=== PATIENT | male | born 1965 | race Two or more races ===

== ENCOUNTER 2016-05-04 11:15 | Inpatient (IN) | payer OTHER ==
[2016-05-04 11:24] VITALS: BMI 30.8
--- NOTE | 2016-05-04 13:27 | HP ---
COWS - Scale Resting Pulse: 1= [place] 81-100 Sweatin= Chills/Flushing Restless Observation: 3= Extraneous Movement Pupil Size: 2= Moderately Dilated Bone or Joint Aches: 4=Acute Joint/Muscle Pain Runny Nose/ Eye Tearin= Nasal Congestion GI Upset > 30mins: 3= Vomiting/Diarrhea (N/V) Tremor Observation: 2= Slight Tremor Visible Yawning Observation: 2= >3x During Session Anxiety or Irritability: 1=Feels Anxious/Irritable Goose Flesh Skin: 0=Smooth Skin COWS Score: 20 CIWA Score - CIWA Score Nausea/Vomitin (N/V) Muscle Tremors: 4-Moderate,w/Arms Extend Anxiety: 4-Mod. Anxious/Guarded Agitation: 4-Moderately Restless Paroxysmal Sweats: 1-Minimal Palms Moist Orientation: 0-Oriented Tacttile Disturbances: 3-Moderate Itch/Numb/Burn Auditory Disturbances: 3-Moderate Harsh/Frighten Visual Disturbances: 0-None Headache: 0-None Present CIWA-Ar Total Score: 24 Admission [facility] Chief Complaint: DETOX TX FOR HEROIN AND ALCOHOL DEPENDENCE Allergies/Adverse Reactions: Allergies Allergy/AdvReac Type Severity Reaction Status Date / Time No Known Allergies Allergy Verified 03/26/13 20:02 History of Present Illness: 51 Y/O H/M WITH A HX OF HEROIN AND ALCOHOL DEPENDENCE SEEKING DETOX [place] Exam Limitations: No Limitations - Ebola screening Have you traveled outside of the country in the last 21 days: No Have you had contact with anyone from an Ebola affected area: No Have you been sick,other than usual withdrawal symptoms: No Do you have a fever: No - Review of Systems Constitutional: Chills, Loss of Appetite, Night Sweats, Changes in sleep ( AMBIEN FOR SLEEP) EENT: reports: Dental Problems (DENTURES-UPPER/LOWER) Respiratory: reports: No Symptoms reported Cardiac: reports: Lightheadedness GI: reports: Constipated, Diarrhea, Nausea, Vomiting : reports: Frequency Musculoskeletal: reports: Back Pain, Joint Pain, Muscle Pain Integumentary: reports: No Symptoms Reported Neuro: reports: Headache, Tremors, Unsteady Gait, Dizziness Endocrine: reports: No Symptoms Reported Hematology: reports: No Symptoms Reported Psychiatric: reports: Orientated x3, Anxious Other Systems: Reviewed and Negative Patient History - Patient Medical History Hx Anemia: No Hx Asthma: No Hx Chronic Obstructive Pulmonary Disease (COPD): No Hx Cancer: No Hx Cardiac Disorders: Yes (ANGIOPLASTY WITH STENT) Hx Congestive Heart Failure: No Hx Hypertension: Yes (ON MED) Hx Hypercholesterolemia: Yes Hx Pacemaker: No HX Cerebrovascular Accident: Yes (HX RIGHT HEMIPLEGIA--NO RESIDUAL EFFECTS TODAY.) Hx Seizures: No Hx Dementia: No Hx Diabetes: Yes (ON MED) Hx Gastrointestinal Disorders: No Hx Liver Disease: No Hx Genitourinary Disorders: No Hx Sexually Transmitted Disorders: No Hx Renal Disease (ESRD): Yes (HX RENAL INSUFFICIENCY) Hx Thyroid Disease: No Hx Human Immunodeficiency Virus (HIV): No (08/2011-negative) Hx Hepatitis C: No Hx Depression: No Hx Suicide Attempt: No (DENIES) Hx Bipolar Disorder: No Hx Schizophrenia: No - Patient Surgical History Past Surgical History: No Hx Neurologic Surgery: No Hx Cataract Extraction: No Hx Cardiac Surgery: Yes (s/p angioplasty with stent) Hx Lung Surgery: No Hx Breast Surgery: No Hx Breast Biopsy: No Hx Abdominal Surgery: No Hx Appendectomy: No Hx Cholecystectomy: No Hx Genitourinary Surgery: No Hx Section: No Hx Orthopedic Surgery: No Hx Hysterectomy: No Other Surgical History: 2009-cardiac cath with stent at [facility] after routine p.exam Anesthesia Reaction: No - PPD History Previous Implant?: No Documented Results: Positive w/o proof Implanted On Prior [facility] Admission?: No Results: CXR TBD PPD to be Administered?: No - Reproductive History Patient is a Female of Child Bearing Age (11 -55 yrs old): No (MALE) - Smoking Cessation Smoking history: Current every day smoker Have you smoked in the past 12 months: Yes Aproximately how many cigarettes per day: 20 Cigars Per Day: 0 Hx Chewing Tobacco Use: No Initiated information on smoking cessation: Yes 'Breaking Loose' booklet given: 05/04/16 - Substance & Tx. History Hx Alcohol Use: Yes (LIQUOR/BEER) Hx Substance Use: Yes (HEROIN) Substance Use Type: Alcohol, Heroin Hx Substance Use Treatment: Yes ([facility]) - Substances Abused Alcohol Route: Oral Frequency: Daily Amount used: 1 pint liquor Age of first use: 16 Date of Last Use: 05/03/16 Herione Route: Inhalation Frequency: Daily Amount used: 15 bags Age of first use: 16 Date of Last Use: 05/03/16 Family Disease History - Family Disease History Family History: Denies Admission Physical Exam [facility] - Vital Signs Vital Signs: Vital Signs - 24 hr 05/04/16 11:17 Temperature 98.0 F Pulse Rate 99 H Respiratory 20 Rate Blood Pressure 150/90 - Physical General Appearance: Yes: Moderate Distress, Irritable, Anxious HEENTM: Yes: EOMI, Normocephalic, YASMEEN, Pharynx Normal Respiratory: Yes: Chest Non-Tender, Lungs Clear, Normal Breath Sounds, No Respiratory Distress Neck: Yes: Supple, Trachea in good position Breast: Yes: Breast Exam Deferred Cardiology: Yes: Regular Rhythm, Regular Rate, S1, S2 Abdominal: Yes: Normal Bowel Sounds, Non Tender, Soft, Protuberent Genitourinary: Yes: Other (N/C) Back: Yes: Within Normal Limits Musculoskeletal: Yes: full range of Motion, Gait Steady Extremities: Yes: Normal Range of Motion, Non-Tender Neurological: Yes: research lab assistant II-XII NML intact, Fully Oriented, Alert, Motor Strength 5/5 Integumentary: Yes: Dry, Warm Lymphatic: Yes: Within Normal Limits - Diagnostic (1) DM Diabetes mellitus type 2 Current Visit: Yes Status: Chronic (2) Essential hypertension Current Visit: Yes Status: Chronic (3) Hypercholesterolemia Current Visit: Yes Status: Chronic (4) Nicotine dependence Current Visit: Yes Status: Chronic (5) coronary artery disease with stent Current Visit: Yes Status: Chronic (6) mmtp Current Visit: No Status: Inactive (7) 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
[2016-05-04] MEDS ORDERED: MENTHOL/PHENOL 1 EACH UD MM PRN (13:36)
[2016-05-04] MEDS ORDERED: IBUPROFEN 400 MG TABLET (FP) PO PRN (13:36)
[2016-05-04] MEDS ORDERED: LOPERAMIDE HCL 2 MG CAPSULE PO PRN (13:36)
[2016-05-04] MEDS ORDERED: P-EPHED 60MG/TRIPROLIDI 2.5MG TABLET PO PRN (13:36)
[2016-05-04] MEDS ORDERED: NICOTINE POLACRILEX 2 MG GUM BUC PRN (13:36)
[2016-05-04] MEDS ORDERED: chlordiazePOXIDE HCL 25 MG CAPSULE PO PRN (13:36)
[2016-05-04] MEDS ORDERED: guaiFENesin/D-METHORPHAN HB 10 ML UNIT-DOSE CUPS PO PRN (13:36)
[2016-05-04] MEDS ORDERED: hydrOXYzine PAMOATE 25 MG CAPSULE (FP) PO PRN (13:36)
[2016-05-04] MEDS ORDERED: MAGNESIUM CITRATE 300 ML BOTTLE PO PRN (13:36)
[2016-05-04] MEDS ORDERED: MAGNESIUM HYDROX 2400MG/30ML ORAL SUSPENSION 30 ML CUP PO PRN (13:36)
[2016-05-04] MEDS ORDERED: MAG HYDROX/AL HYDROX/SIMETH 30 ML UNIT-DOSE CUP PO PRN (13:36)
[2016-05-04] MEDS ORDERED: chlordiazePOXIDE HCL 25 MG CAPSULE PO ONE (13:54)
[2016-05-04] MEDS ORDERED: METHADONE HCL 10 MG TABLET (FOR DETOX USE ONLY) PO ONE ×2 (13:55→23:00)
[2016-05-04] MEDS: chlordiazePOXIDE HCL 25 MG CAPSULE PO SCH ×2 (17:22→22:08)
[2016-05-04] MEDS: metFORMIN HCL 500 MG TABLET (FP) PO SCH (17:23)
[2016-05-04 18:59] LABS: URINE APPEARANCE CLEAR; URINE BILIRUBIN NEGATIVE (NEGATIVE); URINE BLOOD NEGATIVE (NEGATIVE); URINE COLOR STRAW; URINE GLUCOSE (UA) 3+ (NEGATIVE); URINE KETONE NEGATIVE (NEGATIVE); URINE LEUK ESTERASE NEGATIVE (NEGATIVE); URINE NITRITE NEGATIVE (NEGATIVE); URINE PROTEIN NEGATIVE (NEGATIVE); URINE UROBILINOGEN NEGATIVE E.U./dl (0.2-1.0)
[2016-05-04] MEDS: THIAMINE HCL 100 MG TABLET (FP) PO SCH (22:08)
[2016-05-04] MEDS: diphenhydrAMINE HCL 50 MG CAPSULE PO PRN (22:10)
[2016-05-05] MEDS: chlordiazePOXIDE HCL 25 MG CAPSULE PO SCH ×4 (05:42→22:22)
[2016-05-05] MEDS: metFORMIN HCL 500 MG TABLET (FP) PO SCH ×2 (07:37→16:53)
[2016-05-05] MEDS ORDERED: INSULIN (NOVOLOG) ASPART 100 UNITS/ML 10ML VIAL ONE ×3 (07:37→16:43)
[2016-05-05] MEDS: INSULIN SLIDING SCALE (NOVOLOG) 1 VIAL SQ SCH ×3 (07:41→16:53)
[2016-05-05] MEDS ORDERED: METHADONE HCL 10 MG TABLET (FOR DETOX USE ONLY) PO SCH (10:00)
--- NOTE | 2016-05-05 10:31 | CONSULT ---
[facility] Psychiatric Consult - Data Date of interview: 05/05/16 Admission source: [employer] Identifying data: Mr Hoyt is a 51 years old single male, father of a 17 years old son, unemployed on food stamp, living with family Substance Abuse History: - Smoking Cessation. Smoking history: Current every day smoker. Have you smoked in the past 12 months: Yes. Aproximately how many cigarettes per day: 20. Cigars Per Day: 0. Hx Chewing Tobacco Use: No. Initiated information on smoking cessation: Yes. 'Breaking Loose' booklet given : 05/04/16. - Substance & Tx. History. Hx Alcohol Use: Yes (LIQUOR/BEER). Hx Substance Use: Yes (HEROIN). Substance Use Type: Alcohol, Heroin. Hx Substance Use Treatment: Yes ([facility] - Substances Abused. Alcohol. Route : Oral. Frequency: Daily. Amount used: 1 pint liquor. Age of first use: 16. Date of Last Use: 05/03/16. Herione. Route: Inhalation. Frequency: Daily. Amount used: 15 bags. Age of first use: 16. Date of Last Use: 05/03/16 Medical History: Significant for history of HTN, Hyperlipidemia, DM, CAD with s/ p stent, S/P CVA with right hemiplegia( no residual at present), renal insufficiency, PPD+. Smokes cigarettes 1ppd Psychiatric History: Denies history of previous psychiatric treatment. However, reports being prescribed Ambien 10 mg po HS for insomnia. At present, patient is irritable, uncooperative and somewhat hostile Physical/Sexual Abuse/Trauma History: Denies history of physical, sexual abuse Additional Comment: Reports 3 previous felony convictions and he is on parole till 2019 Mental Status Exam - Mental Status Exam Alert and Oriented to: Time, Place, Person Cognitive Function: Fair Patient Appearance: Disheveled Mood: Angry, Hostile, Irritable Affect: Appropriate Patient Behavior: Uncooperative Speech Pattern: Clear Voice Loudness: Normal Thought Process: Intact Hallucinations: Denies Suicidal Ideation: Denies Homicidal Ideation: Denies Insight/Judgement: Poor Sleep: Poorly Appetite: Poor Muscle strength/Tone: Normal Gait/Station: Normal
[2016-05-05 10:43] LABS: MCH 27.7 pg (25.7-33.7); MCHC 32.7 g/dl (32.0-35.9); MEAN CELL VOLUME 84.8 fl (80-96); PLATELET COUNT 362 K/MM3 (134-434); RDW 14.6 % (11.9-15.9)
[2016-05-05] MEDS: METOPROLOL TARTRATE 25 MG TABLET (FP) PO SCH (10:49)
[2016-05-05] MEDS: HYDROCHLOROTHIAZIDE 25 MG TABLET (FP) PO SCH (10:49)
[2016-05-05] MEDS: LISINOPRIL 20 MG TABLET (FP) PO SCH (10:49)
[2016-05-05] MEDS: PRENATAL VITAMINS W/ FOLIC ACID TABLET (FP) PO SCH (10:49)
[2016-05-05 10:55] LABS: BILIRUBIN,TOTAL 0.4 mg/dL (0.2-1.0); CALCIUM 8.3 mg/dL (8.5-10.1); CREATININE 1.5 mg/dL (0.7-1.3)
[2016-05-05 11:00] LABS: TOT PROT 6.7 g/dl (6.4-8.2)
--- NOTE | 2016-05-05 15:35 | EKG ---
Test Reason : Blood Pressure : / mmHG Vent. Rate : 085 BPM Atrial Rate : 085 BPM P-R Int : 216 ms QRS Dur : 092 ms QT Int : 386 ms P-R-T Axes : 034 -40 089 degrees QTc Int : 459 ms SINUS RHYTHM WITH 1ST DEGREE A-V BLOCK LEFT AXIS DEVIATION ANTEROLATERAL INFARCT , AGE UNDETERMINED ABNORMAL ECG NO PREVIOUS ECGS AVAILABLE Confirmed by GONZALEZ SANDOVAL MD ([id number]) on 05/05/2016 3:34:58 PM Referred By: Confirmed By:GONZALEZ SANDOVAL MD
--- NOTE | 2016-05-05 16:16 | PN ---
S CIWA - CIWA Score Nausea/Vomitin Muscle Tremors: 3 Anxiety: 4-Mod. Anxious/Guarded Agitation: 4-Moderately Restless Paroxysmal Sweats: 3 Orientation: 0-Oriented Tacttile Disturbances: 1-Very Mild Itch/Numbness Auditory Disturbances: 0-None Visual Disturbances: 0-None Headache: 1-Very Mild CIWA-Ar Total Score: 19 BHS COWS - Scale Resting Pulse: 1= [place] 81-100 Sweatin= Chills/Flushing Restless Observation: 1= Difficult to Sit Still Pupil Size: 1= Pupils >than Normal Bone or Joint Aches: 1= Mild Discomfort Runny Nose/ Eye Tearin= Nasal Congestion GI Upset > 30mins: 2= Nausea/Diarrhea Tremor Observation of Outstretched Hands: 1= Tremor [place], Not Seen Yawning Observation: 1= 1-2x During Session Anxiety or Irritability: 2=Irritable/Anxious Goose Flesh Skin: 0=Smooth Skin COWS Score: 12 S Progress Note (SOAP) Subjective: nausea, sweats, interrupted sleep, anxiety, tremor Objective: 05/05/16 16:14 Vital Signs - 24 hr 05/04/16 05/04/16 05/05/16 18:03 21:55 00:31 Temperature 96.7 F L 98.3 F Pulse Rate 96 H 93 H Respiratory 18 18 18 Rate Blood Pressure 146/89 139/99 05/05/16 05/05/16 05/05/16 03:29 06:07 09:40 Temperature 98.0 F 98.8 F Pulse Rate 86 102 H Respiratory 18 18 20 Rate Blood Pressure 142/95 140/91 05/05/16 13:38 Temperature 97.2 F L Pulse Rate 93 H Respiratory 20 Rate Blood Pressure 134/93 Laboratory Tests 05/04/16 05/04/16 05/04/16 12:31 15:00 16:34 WBC RBC Hgb Hct MCV MCHC RDW Plt Count MPV Sodium Potassium Chloride Carbon Dioxide Anion Gap BUN Creatinine Creat Clearance w eGFR POC Glucometer 472 422 Random Glucose Calcium Total Bilirubin AST ALT Alkaline Phosphatase Total Protein Albumin Urine Color Straw Urine Appearance Clear Urine pH 8.0 D Ur Specific [place] 1.025 Urine Protein Negative Urine Glucose (UA) 3+ H Urine Ketones Negative Urine Blood Negative Urine Nitrite Negative Urine Bilirubin Negative Urine Urobilinogen Negative Ur Leukocyte Esterase Negative RPR Titer 01/20/17 01/20/17 01/20/17 05:42 06:15 06:15 WBC 13.0 H D RBC 4.55 Hgb 12.6 Hct 38.5 MCV 84.8 MCHC 32.7 RDW 14.6 Plt Count 362 D MPV 8.0 Sodium 130 L Potassium 5.2 H D Chloride 94 L Carbon Dioxide 26 Anion Gap 10 BUN 23 H Creatinine 1.5 H D Creat Clearance w eGFR 49.54 POC Glucometer 305 Random Glucose 571 H* D Calcium 8.3 L Total Bilirubin 0.4 D AST 10 L ALT 21 Alkaline Phosphatase 125 H D Total Protein 6.7 Albumin 3.0 L Urine Color Urine Appearance Urine pH Ur Specific [place] Urine Protein Urine Glucose (UA) Urine Ketones Urine Blood Urine Nitrite Urine Bilirubin Urine Urobilinogen Ur Leukocyte Esterase RPR Titer 05/05/16 05/05/16 06:15 11:09 WBC RBC Hgb Hct MCV MCHC RDW Plt Count MPV Sodium Potassium Chloride Carbon Dioxide Anion Gap BUN Creatinine Creat Clearance w eGFR POC Glucometer 468 Random Glucose Calcium Total Bilirubin AST ALT Alkaline Phosphatase Total Protein Albumin Urine Color Urine Appearance Urine pH Ur Specific [place] Urine Protein Urine Glucose (UA) Urine Ketones Urine Blood Urine Nitrite Urine Bilirubin Urine Urobilinogen Ur Leukocyte Esterase RPR Titer Nonreactive elevated K Assessment: 05/05/16 16:15 withdrawal sx, hyperkalemia, dehydration Plan: cont detox, encoruage fluids, repeat K
[2016-05-05] MEDS: THIAMINE HCL 100 MG TABLET (FP) PO SCH (22:22)
[2016-05-05] MEDS: ACETAMINOPHEN 325 MG TABLET (FP) PO PRN (22:22)
[2016-05-05] MEDS: diphenhydrAMINE HCL 50 MG CAPSULE PO PRN (22:23)
[2016-05-06] MEDS: chlordiazePOXIDE HCL 25 MG CAPSULE PO SCH ×2 (05:37→10:32)
[2016-05-06] MEDS ORDERED: INSULIN (NOVOLOG) ASPART 100 UNITS/ML 10ML VIAL ONE ×4 (07:38→22:54)
[2016-05-06] MEDS: metFORMIN HCL 500 MG TABLET (FP) PO SCH ×2 (07:41→17:28)
[2016-05-06] MEDS: INSULIN SLIDING SCALE (NOVOLOG) 1 VIAL SQ SCH ×4 (07:42→22:58)
--- NOTE | 2016-05-06 10:26 | PN ---
S CIWA - CIWA Score Nausea/Vomitin Muscle Tremors: 3 Anxiety: 2 Agitation: 3 Paroxysmal Sweats: 3 Orientation: 0-Oriented Tacttile Disturbances: 1-Very Mild Itch/Numbness Auditory Disturbances: 0-None Visual Disturbances: 0-None Headache: 2-Mild CIWA-Ar Total Score: 16 BHS COWS - Scale Resting Pulse: 1= [place] 81-100 Sweatin=Flushed/Facial Moisture Restless Observation: 3= Extraneous Movement Pupil Size: 1= Pupils >than Normal Bone or Joint Aches: 2= Severe Diffuse Aches Runny Nose/ Eye Tearin= Nasal Congestion GI Upset > 30mins: 2= Nausea/Diarrhea Tremor Observation of Outstretched Hands: 2= Slight Tremor Visible Yawning Observation: 0= None Anxiety or Irritability: 2=Irritable/Anxious Goose Flesh Skin: 3=Piloe[place] COWS Score: 19 S Progress Note (SOAP) Subjective: sleeplessness, chills, back pain, shakes and sweats Objective: 05/06/16 10:24 Vital Signs 05/06/16 05/06/16 03:30 06:24 Temperature 99 F Pulse Rate 81 Respiratory 16 18 Rate Blood Pressure 122/80 Laboratory Last Values WBC 13.0 K/mm3 (4.0-10.0) H D 05/05/16 06:15 RBC 4.55 M/mm3 (4.00-5.60) 05/05/16 06:15 Hgb 12.6 GM/dL (11.7-16.9) 05/05/16 06:15 Hct 38.5 % (35.4-49) 05/05/16 06:15 MCV 84.8 fl (80-96) 05/05/16 06:15 MCHC 32.7 g/dl (32.0-35.9) 05/05/16 06:15 RDW 14.6 % (11.9-15.9) 05/05/16 06:15 Plt Count 362 K/MM3 (134-434) D 05/05/16 06:15 MPV 8.0 fl (7.5-11.1) 05/05/16 06:15 Sodium 130 mmol/L (136-145) L 05/05/16 06:15 Potassium 5.2 mmol/L (3.5-5.1) H D 05/05/16 06:15 Chloride 94 mmol/L (98-107) L 05/05/16 06:15 Carbon Dioxide 26 mmol/L (21-32) 05/05/16 06:15 Anion Gap 10 (8-16) 05/05/16 06:15 BUN 23 mg/dL (7-18) H 05/05/16 06:15 Creatinine 1.5 mg/dL (0.7-1.3) H D 05/05/16 06:15 Creat Clearance w eGFR 49.54 (>60) 05/05/16 06:15 POC Glucometer 261 UNITS (()) 05/06/16 05:39 Random Glucose 571 mg/dL (74-106) H* D 05/05/16 06:15 Calcium 8.3 mg/dL (8.5-10.1) L 05/05/16 06:15 Total Bilirubin 0.4 mg/dL (0.2-1.0) D 05/05/16 06:15 AST 10 U/L (15-37) L 05/05/16 06:15 ALT 21 U/L (12-78) 05/05/16 06:15 Alkaline Phosphatase 125 U/L (45-117) H D 05/05/16 06:15 Total Protein 6.7 g/dl (6.4-8.2) 05/05/16 06:15 Albumin 3.0 g/dl (3.4-5.0) L 05/05/16 06:15 Urine Color Straw 05/04/16 15:00 Urine Appearance Clear 05/04/16 15:00 Urine pH 8.0 (5.0-8.0) D 05/04/16 15:00 Ur Specific [place] 1.025 (1.001-1.035) 05/04/16 15:00 Urine Protein Negative (NEGATIVE) 05/04/16 15:00 Urine Glucose (UA) 3+ (NEGATIVE) H 05/04/16 15:00 Urine Ketones Negative (NEGATIVE) 05/04/16 15:00 Urine Blood Negative (NEGATIVE) 05/04/16 15:00 Urine Nitrite Negative (NEGATIVE) 05/04/16 15:00 Urine Bilirubin Negative (NEGATIVE) 05/04/16 15:00 Urine Urobilinogen Negative E.U./dl (0.2-1.0) 05/04/16 15:00 Ur Leukocyte Esterase Negative (NEGATIVE) 05/04/16 15:00 RPR Titer Nonreactive (NONREACTIVE) 05/05/16 06:15 Labs noted, repeat labs pending Assessment: 05/06/16 10:25 withdrawal sx, electrolyte abnormalities Plan: continue detox, address repeat labs as indicated once resulted
[2016-05-06] MEDS: PRENATAL VITAMINS W/ FOLIC ACID TABLET (FP) PO SCH (10:32)
[2016-05-06] MEDS: LISINOPRIL 20 MG TABLET (FP) PO SCH (10:32)
[2016-05-06] MEDS: METHADONE HCL 5 MG TABLET (FOR DETOX USE ONLY) PO SCH (10:32)
[2016-05-06] MEDS: METOPROLOL TARTRATE 25 MG TABLET (FP) PO SCH (10:32)
[2016-05-06] MEDS: HYDROCHLOROTHIAZIDE 25 MG TABLET (FP) PO SCH (10:32)
[2016-05-06 11:08] LABS: BASOPHIL 0.7 % (0-2.0); EOSINOPHIL 3.7 % (0-4.5); MCHC 32.3 g/dl (32.0-35.9); MEAN CELL VOLUME 83.4 fl (80-96); MEAN PLT VOLUME 7.6 fl (7.5-11.1); NEUTROPHILS 63.3 % (42.8-82.8); PLATELET COUNT 368 K/MM3 (134-434); RDW 14.7 % (11.9-15.9)
[2016-05-06 11:47] LABS: CALCIUM 8.4 mg/dL (8.5-10.1); CREATININE 1.3 mg/dL (0.7-1.3)
[2016-05-06] MEDS: chlordiazePOXIDE 5 MG CAPSULE PO SCH ×2 (17:31→22:59)
--- NOTE | 2016-05-06 20:56 | PN ---
[facility] Progress Note Note: MD'S NOTE: CALLED TO SEE THE PT. AT 8:00PM WHO FELL ON THE FLOOR AND HIT ON LEFT SIDE OF THE NECK DENIES: HITTING THE HEAD SUB: DIZZINESS AND WEAKNESS+ ONGOING BLURRED VISION++ NOT TAKING CARE OF HIS DIABETES OBJ: THE PT. IS STEEN X 3, NOT IN DISTRESS AND HE IS AMBULATORY WITH AN UNSTEADY GAIT V/S: 98.1T-89-16-125/81 S/E: HEAD AND NECK: NL MOVEMENTS NO VISIBLE INJURIES NOTED CVS: -JVD, NL HEART SOUNDS, NO MURMURS LUNGS: VESICULAR BREATH SOUNDS, NO RALES OR RHONCHI ABD: SOFT, NT, B.S.+ IMPRESSION: SOFT TISSUE INJURY NECK - APPARENTLY WITHOUT ANY VISIBLE INJURIES UNCONTROLLED DM PLANS: -PROTOCOL #2 -OBSERVATION -INSULIN SLIDING SCALE AND COVERAGE HAS BEEN CHANGED TO ACHS -TO KEEP THE PT. CLOSE TO THE NURSING STATION -HE CAN USE A CANE NEEDED -WILL F/U NEEDED PROVIDER: JULIAN DELUCA MD
[2016-05-06] MEDS: THIAMINE HCL 100 MG TABLET (FP) PO SCH (22:55)
[2016-05-07] MEDS: chlordiazePOXIDE 5 MG CAPSULE PO SCH ×2 (06:05→10:24)
[2016-05-07] MEDS ORDERED: INSULIN (NOVOLOG) ASPART 100 UNITS/ML 10ML VIAL ONE ×3 (08:00→21:04)
[2016-05-07] MEDS: INSULIN SLIDING SCALE (NOVOLOG) 1 VIAL SQ SCH ×4 (08:01→21:07)
[2016-05-07] MEDS: metFORMIN HCL 500 MG TABLET (FP) PO SCH ×2 (08:03→16:50)
[2016-05-07] MEDS: METHADONE HCL 5 MG TABLET (FOR DETOX USE ONLY) PO SCH (10:24)
[2016-05-07] MEDS: HYDROCHLOROTHIAZIDE 25 MG TABLET (FP) PO SCH (10:24)
[2016-05-07] MEDS: PRENATAL VITAMINS W/ FOLIC ACID TABLET (FP) PO SCH (10:24)
[2016-05-07] MEDS: LISINOPRIL 20 MG TABLET (FP) PO SCH (10:24)
[2016-05-07] MEDS: METOPROLOL TARTRATE 25 MG TABLET (FP) PO SCH (10:24)
--- NOTE | 2016-05-07 10:58 | PN ---
S Progress Note (SOAP) Subjective: Anxiety, restless, dizziness, lightheadedness, persistent headache presently pain scale 4/10, unsteady gait, diarrhea, upset stomach, numbness in legs; patient stated he fell last night on the floor and hit the back of his head on his roommate's bed and his roommate assisted him off the floor. Roommate stated that patient did fall and that he assisted him off the floor. Patient reports history of DMT2 and CVA x 2 in 2011 with mild residual weakness in his arms and legs. As per patient, he didn't eat breakfast and has not been drinking fluids. Crisis Worker encouraged patient to eat meals and drink lots of water. He agrees to drink glucerna TID.Patient agreed to use cane when available. Objective: 05/07/16 10:58 Last Vital Signs Temp Pulse Resp BP Pulse Ox 97.1 F L 90 16 114/80 05/07/16 07:58 05/07/16 07:58 05/07/16 07:58 05/07/16 07:58 PE: Head: AT/NC, mild tenderness to palpation at left cerebellum/posterior of head Resp: lungs ctab/l, no adventitious breath sounds CV: rrr, s1s2+, apical rate 92 bpm, no m/g/r Skin: warm to touch, turgor good Gait: a little unsteady when he gets up but ambulatory Laboratory Tests 05/04/16 05/04/16 05/04/16 12:31 15:00 16:34 WBC RBC Hgb Hct MCV MCHC RDW Plt Count MPV Neutrophils % Lymphocytes % Monocytes % Eosinophils % Basophils % Sodium Potassium Chloride Carbon Dioxide Anion Gap BUN Creatinine Creat Clearance w eGFR POC Glucometer 472 422 Random Glucose Calcium Total Bilirubin AST ALT Alkaline Phosphatase Total Protein Albumin Urine Color Straw Urine Appearance Clear Urine pH 8.0 D Ur Specific [place] 1.025 Urine Protein Negative Urine Glucose (UA) 3+ H Urine Ketones Negative Urine Blood Negative Urine Nitrite Negative Urine Bilirubin Negative Urine Urobilinogen Negative Ur Leukocyte Esterase Negative RPR Titer 05/05/16 05/05/16 05/05/16 05:42 06:15 06:15 WBC 13.0 H D RBC 4.55 Hgb 12.6 Hct 38.5 MCV 84.8 MCHC 32.7 RDW 14.6 Plt Count 362 D MPV 8.0 Neutrophils % Lymphocytes % Monocytes % Eosinophils % Basophils % Sodium 130 L Potassium 5.2 H D Chloride 94 L Carbon Dioxide 26 Anion Gap 10 BUN 23 H Creatinine 1.5 H D Creat Clearance w eGFR 49.54 POC Glucometer 305 Random Glucose 571 H* D Calcium 8.3 L Total Bilirubin 0.4 D AST 10 L ALT 21 Alkaline Phosphatase 125 H D Total Protein 6.7 Albumin 3.0 L Urine Color Urine Appearance Urine pH Ur Specific [place] Urine Protein Urine Glucose (UA) Urine Ketones Urine Blood Urine Nitrite Urine Bilirubin Urine Urobilinogen Ur Leukocyte Esterase RPR Titer 05/05/16 05/05/16 05/05/16 06:15 11:09 16:30 WBC RBC Hgb Hct MCV MCHC RDW Plt Count MPV Neutrophils % Lymphocytes % Monocytes % Eosinophils % Basophils % Sodium Potassium Chloride Carbon Dioxide Anion Gap BUN Creatinine Creat Clearance w eGFR POC Glucometer 468 335 Random Glucose Calcium Total Bilirubin AST ALT Alkaline Phosphatase Total Protein Albumin Urine Color Urine Appearance Urine pH Ur Specific [place] Urine Protein Urine Glucose (UA) Urine Ketones Urine Blood Urine Nitrite Urine Bilirubin Urine Urobilinogen Ur Leukocyte Esterase RPR Titer Nonreactive 05/06/16 05/06/16 05/06/16 05:39 08:00 08:00 WBC 13.0 H RBC 4.87 Hgb 13.1 Hct 40.6 MCV 83.4 MCHC 32.3 RDW 14.7 Plt Count 368 MPV 7.6 Neutrophils % 63.3 Lymphocytes % 19.1 Monocytes % 13.2 H Eosinophils % 3.7 Basophils % 0.7 Sodium 134 L Potassium 5.1 Chloride 99 Carbon Dioxide 26 Anion Gap 9 BUN 25 H Creatinine 1.3 Creat Clearance w eGFR POC Glucometer 261 Random Glucose 277 H D Calcium 8.4 L Total Bilirubin AST ALT Alkaline Phosphatase Total Protein Albumin Urine Color Urine Appearance Urine pH Ur Specific [place] Urine Protein Urine Glucose (UA) Urine Ketones Urine Blood Urine Nitrite Urine Bilirubin Urine Urobilinogen Ur Leukocyte Esterase RPR Titer 05/06/16 05/06/16 05/07/16 11:28 21:24 07:57 WBC RBC Hgb Hct MCV MCHC RDW Plt Count MPV Neutrophils % Lymphocytes % Monocytes % Eosinophils % Basophils % Sodium Potassium Chloride Carbon Dioxide Anion Gap BUN Creatinine Creat Clearance w eGFR POC Glucometer 545 369 224 Random Glucose Calcium Total Bilirubin AST ALT Alkaline Phosphatase Total Protein Albumin Urine Color Urine Appearance Urine pH Ur Specific [place] Urine Protein Urine Glucose (UA) Urine Ketones Urine Blood Urine Nitrite Urine Bilirubin Urine Urobilinogen Ur Leukocyte Esterase RPR Titer Labs noted Assessment: 05/07/16 11:02 Withdrawal symptoms Headache secondary to syncope Plan: Continue detox, encouraged diet, glucerna 1 can PO TID, encouraged to drink lots of water Headache secondary to sycope: report given to Dr. Mcdonald in ER at [facility] for evaluation due to fall, CT brain without contrast, tylenol prn. Educated on importance of changing position slowly and dangling legs before getting up and getting up slowly. Ordered for cane. Continue fall precaution and monitor for safety.
[2016-05-07] MEDS: chlordiazePOXIDE HCL 10 MG CAPSULE PO SCH ×2 (16:50→22:28)
[2016-05-07] MEDS: diphenhydrAMINE HCL 50 MG CAPSULE PO PRN (21:08)
[2016-05-07] MEDS: THIAMINE HCL 100 MG TABLET (FP) PO SCH (21:09)
[2016-05-08] MEDS: ACETAMINOPHEN 325 MG TABLET (FP) PO PRN ×2 (05:49→14:01)
[2016-05-08] MEDS: chlordiazePOXIDE HCL 10 MG CAPSULE PO SCH ×2 (05:55→10:17)
[2016-05-08] MEDS ORDERED: INSULIN (NOVOLOG) ASPART 100 UNITS/ML 10ML VIAL ONE ×4 (07:37→21:39)
[2016-05-08] MEDS: metFORMIN HCL 500 MG TABLET (FP) PO SCH ×2 (07:43→17:26)
[2016-05-08] MEDS: INSULIN SLIDING SCALE (NOVOLOG) 1 VIAL SQ SCH ×4 (07:43→21:41)
[2016-05-08] MEDS ORDERED: METHADONE HCL 10 MG TABLET (FOR DETOX USE ONLY) PO SCH (10:00)
[2016-05-08] MEDS: METOPROLOL TARTRATE 25 MG TABLET (FP) PO SCH (10:16)
[2016-05-08] MEDS: LISINOPRIL 20 MG TABLET (FP) PO SCH (10:16)
[2016-05-08] MEDS: PRENATAL VITAMINS W/ FOLIC ACID TABLET (FP) PO SCH (10:16)
[2016-05-08] MEDS: HYDROCHLOROTHIAZIDE 25 MG TABLET (FP) PO SCH (10:17)
--- NOTE | 2016-05-08 10:43 | PN ---
[facility] Progress Note (SOAP) Subjective: nausea, sweats, interrupted sleep, anxiety, tremors, left sided numbness/ tingling and weakness s/p cva no pain reported. Objective: 05/08/16 10:42 Vital Signs - 8 hr 05/08/16 05/08/16 05/08/16 03:30 06:09 09:18 Temperature 97.3 F L 98.1 F Pulse Rate 94 H 74 Respiratory 18 18 16 Rate Blood Pressure 116/78 101/69 Laboratory Tests 05/04/16 05/04/16 05/04/16 12:31 15:00 16:34 WBC RBC Hgb Hct MCV MCHC RDW Plt Count MPV Neutrophils % Lymphocytes % Monocytes % Eosinophils % Basophils % Sodium Potassium Chloride Carbon Dioxide Anion Gap BUN Creatinine Creat Clearance w eGFR POC Glucometer 472 422 Random Glucose Calcium Total Bilirubin AST ALT Alkaline Phosphatase Total Protein Albumin Urine Color Straw Urine Appearance Clear Urine pH 8.0 D Ur Specific [place] 1.025 Urine Protein Negative Urine Glucose (UA) 3+ H Urine Ketones Negative Urine Blood Negative Urine Nitrite Negative Urine Bilirubin Negative Urine Urobilinogen Negative Ur Leukocyte Esterase Negative RPR Titer 05/05/16 05/05/16 05/05/16 05:42 06:15 06:15 WBC 13.0 H D RBC 4.55 Hgb 12.6 Hct 38.5 MCV 84.8 MCHC 32.7 RDW 14.6 Plt Count 362 D MPV 8.0 Neutrophils % Lymphocytes % Monocytes % Eosinophils % Basophils % Sodium 130 L Potassium 5.2 H D Chloride 94 L Carbon Dioxide 26 Anion Gap 10 BUN 23 H Creatinine 1.5 H D Creat Clearance w eGFR 49.54 POC Glucometer 305 Random Glucose 571 H* D Calcium 8.3 L Total Bilirubin 0.4 D AST 10 L ALT 21 Alkaline Phosphatase 125 H D Total Protein 6.7 Albumin 3.0 L Urine Color Urine Appearance Urine pH Ur Specific [place] Urine Protein Urine Glucose (UA) Urine Ketones Urine Blood Urine Nitrite Urine Bilirubin Urine Urobilinogen Ur Leukocyte Esterase RPR Titer 05/05/16 05/05/16 05/05/16 06:15 11:09 16:30 WBC RBC Hgb Hct MCV MCHC RDW Plt Count MPV Neutrophils % Lymphocytes % Monocytes % Eosinophils % Basophils % Sodium Potassium Chloride Carbon Dioxide Anion Gap BUN Creatinine Creat Clearance w eGFR POC Glucometer 468 335 Random Glucose Calcium Total Bilirubin AST ALT Alkaline Phosphatase Total Protein Albumin Urine Color Urine Appearance Urine pH Ur Specific [place] Urine Protein Urine Glucose (UA) Urine Ketones Urine Blood Urine Nitrite Urine Bilirubin Urine Urobilinogen Ur Leukocyte Esterase RPR Titer Nonreactive 05/06/16 05/06/16 05/06/16 05:39 08:00 08:00 WBC 13.0 H RBC 4.87 Hgb 13.1 Hct 40.6 MCV 83.4 MCHC 32.3 RDW 14.7 Plt Count 368 MPV 7.6 Neutrophils % 63.3 Lymphocytes % 19.1 Monocytes % 13.2 H Eosinophils % 3.7 Basophils % 0.7 Sodium 134 L Potassium 5.1 Chloride 99 Carbon Dioxide 26 Anion Gap 9 BUN 25 H Creatinine 1.3 Creat Clearance w eGFR POC Glucometer 261 Random Glucose 277 H D Calcium 8.4 L Total Bilirubin AST ALT Alkaline Phosphatase Total Protein Albumin Urine Color Urine Appearance Urine pH Ur Specific [place] Urine Protein Urine Glucose (UA) Urine Ketones Urine Blood Urine Nitrite Urine Bilirubin Urine Urobilinogen Ur Leukocyte Esterase RPR Titer 05/06/16 05/06/16 05/07/16 11:28 21:24 07:57 WBC RBC Hgb Hct MCV MCHC RDW Plt Count MPV Neutrophils % Lymphocytes % Monocytes % Eosinophils % Basophils % Sodium Potassium Chloride Carbon Dioxide Anion Gap BUN Creatinine Creat Clearance w eGFR POC Glucometer 545 369 224 Random Glucose Calcium Total Bilirubin AST ALT Alkaline Phosphatase Total Protein Albumin Urine Color Urine Appearance Urine pH Ur Specific [place] Urine Protein Urine Glucose (UA) Urine Ketones Urine Blood Urine Nitrite Urine Bilirubin Urine Urobilinogen Ur Leukocyte Esterase RPR Titer 05/07/16 05/07/16 05/08/16 16:41 20:28 05:51 WBC RBC Hgb Hct MCV MCHC RDW Plt Count MPV Neutrophils % Lymphocytes % Monocytes % Eosinophils % Basophils % Sodium Potassium Chloride Carbon Dioxide Anion Gap BUN Creatinine Creat Clearance w eGFR POC Glucometer 301 202 264 Random Glucose Calcium Total Bilirubin AST ALT Alkaline Phosphatase Total Protein Albumin Urine Color Urine Appearance Urine pH Ur Specific [place] Urine Protein Urine Glucose (UA) Urine Ketones Urine Blood Urine Nitrite Urine Bilirubin Urine Urobilinogen Ur Leukocyte Esterase RPR Titer Assessment: 05/08/16 10:42 withdrawal sx, hyperglycemia, dehydration, neuropathy, residual left sided weakness s/p stroke Plan: cont detox, encourage fluids, ambulation with assistance, nursing notified.
[2016-05-08] MEDS: THIAMINE HCL 100 MG TABLET (FP) PO SCH (21:41)
[2016-05-08] MEDS ORDERED: ZOLPIDEM TARTRATE 10 MG TABLET (PARK CARE ONLY) PO PRN (22:00)
[2016-05-09] MEDS: ACETAMINOPHEN 325 MG TABLET (FP) PO PRN (05:50)
[2016-05-09] MEDS ORDERED: METHADONE HCL 5 MG TABLET (FOR DETOX USE ONLY) PO SCH (06:00)
[2016-05-09] MEDS ORDERED: INSULIN (NOVOLOG) ASPART 100 UNITS/ML 10ML VIAL ONE ×2 (07:24→11:11)
[2016-05-09] MEDS: INSULIN SLIDING SCALE (NOVOLOG) 1 VIAL SQ SCH ×2 (07:27→11:14)
[2016-05-09] MEDS: metFORMIN HCL 500 MG TABLET (FP) PO SCH (07:27)
--- NOTE | 2016-05-09 09:15 | PN ---
[facility] Progress Note (SOAP) Subjective: no complaints Objective: 05/09/16 09:13 Vital Signs - 8 hr 05/09/16 05/09/16 03:40 06:32 Temperature 96.9 F L Pulse Rate 89 Respiratory 18 18 Rate Blood Pressure 113/83 Laboratory Tests 05/04/16 05/04/16 05/04/16 12:31 15:00 16:34 WBC RBC Hgb Hct MCV MCHC RDW Plt Count MPV Neutrophils % Lymphocytes % Monocytes % Eosinophils % Basophils % Sodium Potassium Chloride Carbon Dioxide Anion Gap BUN Creatinine Creat Clearance w eGFR POC Glucometer 472 422 Random Glucose Calcium Total Bilirubin AST ALT Alkaline Phosphatase Total Protein Albumin Urine Color Straw Urine Appearance Clear Urine pH 8.0 D Ur Specific [place] 1.025 Urine Protein Negative Urine Glucose (UA) 3+ H Urine Ketones Negative Urine Blood Negative Urine Nitrite Negative Urine Bilirubin Negative Urine Urobilinogen Negative Ur Leukocyte Esterase Negative RPR Titer 05/05/16 05/05/16 05/05/16 05:42 06:15 06:15 WBC 13.0 H D RBC 4.55 Hgb 12.6 Hct 38.5 MCV 84.8 MCHC 32.7 RDW 14.6 Plt Count 362 D MPV 8.0 Neutrophils % Lymphocytes % Monocytes % Eosinophils % Basophils % Sodium 130 L Potassium 5.2 H D Chloride 94 L Carbon Dioxide 26 Anion Gap 10 BUN 23 H Creatinine 1.5 H D Creat Clearance w eGFR 49.54 POC Glucometer 305 Random Glucose 571 H* D Calcium 8.3 L Total Bilirubin 0.4 D AST 10 L ALT 21 Alkaline Phosphatase 125 H D Total Protein 6.7 Albumin 3.0 L Urine Color Urine Appearance Urine pH Ur Specific [place] Urine Protein Urine Glucose (UA) Urine Ketones Urine Blood Urine Nitrite Urine Bilirubin Urine Urobilinogen Ur Leukocyte Esterase RPR Titer 05/05/16 05/05/16 05/05/16 06:15 11:09 16:30 WBC RBC Hgb Hct MCV MCHC RDW Plt Count MPV Neutrophils % Lymphocytes % Monocytes % Eosinophils % Basophils % Sodium Potassium Chloride Carbon Dioxide Anion Gap BUN Creatinine Creat Clearance w eGFR POC Glucometer 468 335 Random Glucose Calcium Total Bilirubin AST ALT Alkaline Phosphatase Total Protein Albumin Urine Color Urine Appearance Urine pH Ur Specific [place] Urine Protein Urine Glucose (UA) Urine Ketones Urine Blood Urine Nitrite Urine Bilirubin Urine Urobilinogen Ur Leukocyte Esterase RPR Titer Nonreactive 05/06/16 05/06/16 05/06/16 05:39 08:00 08:00 WBC 13.0 H RBC 4.87 Hgb 13.1 Hct 40.6 MCV 83.4 MCHC 32.3 RDW 14.7 Plt Count 368 MPV 7.6 Neutrophils % 63.3 Lymphocytes % 19.1 Monocytes % 13.2 H Eosinophils % 3.7 Basophils % 0.7 Sodium 134 L Potassium 5.1 Chloride 99 Carbon Dioxide 26 Anion Gap 9 BUN 25 H Creatinine 1.3 Creat Clearance w eGFR POC Glucometer 261 Random Glucose 277 H D Calcium 8.4 L Total Bilirubin AST ALT Alkaline Phosphatase Total Protein Albumin Urine Color Urine Appearance Urine pH Ur Specific [place] Urine Protein Urine Glucose (UA) Urine Ketones Urine Blood Urine Nitrite Urine Bilirubin Urine Urobilinogen Ur Leukocyte Esterase RPR Titer 05/06/16 05/06/16 05/06/16 11:28 16:26 21:24 WBC RBC Hgb Hct MCV MCHC RDW Plt Count MPV Neutrophils % Lymphocytes % Monocytes % Eosinophils % Basophils % Sodium Potassium Chloride Carbon Dioxide Anion Gap BUN Creatinine Creat Clearance w eGFR POC Glucometer 545 442 369 Random Glucose Calcium Total Bilirubin AST ALT Alkaline Phosphatase Total Protein Albumin Urine Color Urine Appearance Urine pH Ur Specific [place] Urine Protein Urine Glucose (UA) Urine Ketones Urine Blood Urine Nitrite Urine Bilirubin Urine Urobilinogen Ur Leukocyte Esterase RPR Titer 05/07/16 05/07/16 05/07/16 07:57 16:41 20:28 WBC RBC Hgb Hct MCV MCHC RDW Plt Count MPV Neutrophils % Lymphocytes % Monocytes % Eosinophils % Basophils % Sodium Potassium Chloride Carbon Dioxide Anion Gap BUN Creatinine Creat Clearance w eGFR POC Glucometer 224 301 202 Random Glucose Calcium Total Bilirubin AST ALT Alkaline Phosphatase Total Protein Albumin Urine Color Urine Appearance Urine pH Ur Specific [place] Urine Protein Urine Glucose (UA) Urine Ketones Urine Blood Urine Nitrite Urine Bilirubin Urine Urobilinogen Ur Leukocyte Esterase RPR Titer 05/08/16 05/08/16 05/08/16 05:51 11:47 16:29 WBC RBC Hgb Hct MCV MCHC RDW Plt Count MPV Neutrophils % Lymphocytes % Monocytes % Eosinophils % Basophils % Sodium Potassium Chloride Carbon Dioxide Anion Gap BUN Creatinine Creat Clearance w eGFR POC Glucometer 264 458 363 Random Glucose Calcium Total Bilirubin AST ALT Alkaline Phosphatase Total Protein Albumin Urine Color Urine Appearance Urine pH Ur Specific [place] Urine Protein Urine Glucose (UA) Urine Ketones Urine Blood Urine Nitrite Urine Bilirubin Urine Urobilinogen Ur Leukocyte Esterase RPR Titer 05/08/16 21:16 WBC RBC Hgb Hct MCV MCHC RDW Plt Count MPV Neutrophils % Lymphocytes % Monocytes % Eosinophils % Basophils % Sodium Potassium Chloride Carbon Dioxide Anion Gap BUN Creatinine Creat Clearance w eGFR POC Glucometer 253 Random Glucose Calcium Total Bilirubin AST ALT Alkaline Phosphatase Total Protein Albumin Urine Color Urine Appearance Urine pH Ur Specific [place] Urine Protein Urine Glucose (UA) Urine Ketones Urine Blood Urine Nitrite Urine Bilirubin Urine Urobilinogen Ur Leukocyte Esterase RPR Titer Assessment: 05/09/16 09:14 completed detox, medically stable Plan: d/c to rehab today, encourage fluids, dietary advice to follow diabetic diet, exercise
--- NOTE | 2016-05-09 09:23 | DS ---
[facility] Detox Discharge Summary Admission Date: 05/04/16 Discharge Date: 05/09/16 - History Present History: Alcohol Dependence, Opioid Dependence Pertinent Past History: anxiety, depression, insomnia, DM, HTN, HLD - Physical Exam Results Vital Signs: Vital Signs Temperature 96.9 F L 05/09/16 06:32 Pulse Rate 89 05/09/16 06:32 Respiratory Rate 18 05/09/16 06:32 Blood Pressure 113/83 05/09/16 06:32 O2 Sat by Pulse Oximetry (%) Pertinent Admission Physical Exam Findings: withdrawal sx - Treatment Hospital Course: Detox Protocol Followed, Detoxed Safely, Responded well, Discharged Condition Good, Rehab Referral Accepted Patient has Accepted a Rehab Referral to: Yes - Medication Discharge Medications: Ambulatory Orders Hydrochlorothiazide [Hctz -] 25 mg PO DAILY #30 tablet 03/30/13 Lisinopril [Prinivil] 20 mg PO DAILY #30 tablet 03/30/13 Hydrochlorothiazide [Hctz -] 25 mg PO DAILY #30 tablet 05/09/16 Lisinopril [Prinivil] 20 mg PO DAILY #30 tablet 05/09/16 Metformin HCl [Glucophage -] 1,000 mg PO BIDAC #60 tablet 05/09/16 Metoprolol Tartrate [Lopressor -] 25 mg PO DAILY #30 tab 05/09/16 - Diagnosis (1) Alcohol dependence with uncomplicated withdrawal Current Visit: Yes Status: Acute (2) Opioid dependence with withdrawal Current Visit: Yes Status: Acute (3) Substance induced mood disorder Current Visit: Yes Status: Acute (4) Substance-induced sleep disorder Current Visit: Yes Status: Acute (5) DM Diabetes mellitus type 2 Current Visit: Yes Status: Chronic (6) Essential hypertension Current Visit: Yes Status: Chronic (7) Hypercholesterolemia Current Visit: Yes Status: Chronic (8) Nicotine dependence Current Visit: Yes Status: Chronic - AMA Did Patient Leave Against Medical Advice: No
[2016-05-09 09:35] VITALS: BP 97/69; PULSE 93; TEMP 97.3
[2016-05-09] MEDS: PRENATAL VITAMINS W/ FOLIC ACID TABLET (FP) PO SCH (10:22)
[2016-05-09] MEDS: METOPROLOL TARTRATE 25 MG TABLET (FP) PO SCH (10:22)
[2016-05-09] MEDS: HYDROCHLOROTHIAZIDE 25 MG TABLET (FP) PO SCH (10:22)
[2016-05-09] MEDS: LISINOPRIL 20 MG TABLET (FP) PO SCH (10:22)
== END 2016-05-09 12:15 | disposition other institution (70) | DRG 773 ==
LOC: YASAS 11:15 → Y3N 13:29
PROVIDERS: ADMIT Internal Medicine; ATTEND Internal Medicine
PROC: HZ2ZZZZ Detoxification Services for Substance Abuse Treatment (ICD-10-PCS; principal; 2016-05-04)
DX: F11.23 Opioid dependence with withdrawal (principal); F10.230 Alcohol dependence with withdrawal, uncomplicated; F17.210 Nicotine dependence, cigarettes, uncomplicated; F19.24 Other psychoactive substance dependence with psychoactive substance-induced mood disorder; F19.282 Other psychoactive substance dependence with psychoactive substance-induced sleep disorder; E11.65 Type 2 diabetes mellitus with hyperglycemia; E78.00 Pure hypercholesterolemia, unspecified; E87.8 Other disorders of electrolyte and fluid balance, not elsewhere classified; E87.6 Hypokalemia; E86.0 Dehydration; I10 Essential (primary) hypertension; I25.10 Atherosclerotic heart disease of native coronary artery without angina pectoris; G62.9 Polyneuropathy, unspecified; Z86.73 Personal history of transient ischemic attack (TIA), and cerebral infarction without residual deficits; Z95.5 Presence of coronary angioplasty implant and graft; Z87.448 Personal history of other diseases of urinary system
CPT/HCPCS: 36415; 71020-TC; 80048; 80053; 81003; 85025; 85027; 86593; 93005; 93010

== ENCOUNTER 2016-05-07 11:31 | Emergency (ER) | payer OTHER ==
[2016-05-07 11:39] VITALS: BP 120/81; PULSE 75; TEMP 98.7; BMI 30.8
--- NOTE | 2016-05-07 12:11 | PDOC ---
History of Present Illness <Nikita Landaverde - Last Filed: 05/07/16 13:43> - General History Source: Patient, Old Records Exam Limitations: No Limitations - History of Present Illness Initial Comments: 05/07/16 14:06 The patient is a 51 year old male, with a significant past medical history of HTN, hyperlipidemia, diabetes, CVA (2011; chronic unsteady gait), CAD w/ stent on Plavix and substance abuse (heroin and alcohol), who presents to the emergency department from [facility] s/p a witnessed mechanical fall while getting out of bed last night at approximately 7PM. The patient states that he hit the back of his head when he fell, but he denies any LOC. He was helped up by his roommate and evaluated by staff at [facility] shortly after. The patient denies any chest pain or shortness of breath. The patient denies any fever, chills, blurry vision, vision changes, headache, nausea, vomiting or diarrhea. Allergies: None reported. Past Surgical History: Angioplasty w/ stent Social History: See HPI. <Elsa Archuleta - Last Filed: 05/07/16 14:09> - General Chief Complaint: Injury Stated Complaint: FALL/HEADACHE Time Seen by Provider: 05/07/16 11:36 Past History - Past Medical History Anemia: No Asthma: No Cancer: No Cardiac Disorders: Yes (ANGIOPLASTY WITH STENT) CVA: Yes (HX RIGHT HEMIPLEGIA--NO RESIDUAL EFFECTS TODAY.) COPD: No CHF: No Dementia: No Diabetes: Yes (ON MED) GI Disorders: No Disorders: No HTN: Yes (ON MED) Hypercholesterolemia: Yes Kidney Stones: No Liver Disease: No Suicide Attempt (Hx): No (DENIES) Seizures: No Thyroid Disease: No - Surgical History Abdominal Surgery: No Appendectomy: No Cardiac Surgery: Yes (s/p angioplasty with stent) Cholecystectomy: No Lung Surgery: No Neurologic Surgery: No Orthopedic Surgery: No - Reproductive History Testicular Surgery: No - Immunization History Immunization Up to Date: Yes - Psycho/Social/Smoking Cessation Hx Anxiety: No Suicidal Ideation: No Smoking History: Never smoked Have you smoked in the past 12 months: No Number of Cigarettes Smoked Daily: 20 Cigars Per Day: 0 Information on smoking cessation initiated: No 'Breaking Loose' booklet given: 05/04/16 Hx Alcohol Use: Yes Drug/Substance Use Hx: Yes Substance Use Type: Alcohol, Heroin Hx Substance Use Treatment: Yes ([facility]) <Nikita Landaverde - Last Filed: 05/07/16 13:43> <Elsa Archuleta - Last Filed: 05/07/16 14:09> - Past Medical History Allergies/Adverse Reactions: Allergies Allergy/AdvReac Type Severity Reaction Status Date / Time No Known Allergies Allergy Verified 03/26/13 20:02 Home Medications: Ambulatory Orders Clonidine HCl [Catapres -] 0.1 mg PO BID #60 tablet 03/30/13 Hydrochlorothiazide [Hctz -] 25 mg PO DAILY #30 tablet 03/30/13 Lisinopril [Prinivil] 20 mg PO DAILY #30 tablet 03/30/13 Metformin HCl [Glucophage] 1,000 mg PO BID #60 tab 03/30/13 Metoprolol Tartrate [Lopressor -] 25 mg PO DAILY #30 tab 03/30/13 Zolpidem Tartrate [Ambien] 10 mg PO HS 05/04/16 Trauma Specific PMHX - Complaint Specific PMHX Arthritis: No <Nikita Landaverde - Last Filed: 05/07/16 13:43> Review of Systems - Review of Systems Able to Perform ROS?: Yes Comments:: 05/07/16 14:08 CONSTITUTIONAL: No reported: Fever, Chills, Diaphoresis, Generalized Weakness, Malaise, Loss of Appetite HEENT: No reported: Rhinorrhea, Nasal Congestion, Throat Pain, Throat Swelling, Difficulty Swallowing, Mouth Swelling, Ear Pain, Eye Pain, Visual Changes CARDIOVASCULAR: No reported: Chest Pain, Syncope, Palpitations, Irregular Heart Rate, Lightheadedness, Peripheral Edema RESPIRATORY: No reported: Cough, Shortness of Breath, SOB with Exertion, Orthopnea, Wheezing , Stridor, Hemoptysis GASTROINTESTINAL: No reported: Abdominal pain, Abdominal Distension, Nausea, Vomiting, Diarrhea, Constipation, Melena, Hematochezia GENITOURINARY: No reported: Dysuria, Frequency, Urgency, Hesitancy, Flank Pain, Genital Pain MUSCULOSKELETAL: No reported: Myalgia, Arthralgia, Joint Swelling, Back pain, Neck Pain SKIN: No reported: Rash, Itching, Pallor HEMATOLOGIC/IMMUNOLOGIC: No reported: Easy Bleeding, Easy Bruising, Lymphadenopathy, Frequent infections ENDOCRINE: No reported: Unexplained Weight Gain, Unexplained Weight Loss, Heat Intolerance , Cold Intolerance NEUROLOGIC: No reported: Headache, Focal Weakness, Paresthesias, Vertigo, Lightheadedness, Unsteady Gait, Seizure, Mental Status Changes, Incontinence PSYCHIATRIC: No reported: Anxiety, Depression <Elsa Archuleta - Last Filed: 05/07/16 14:09> *Physical Exam - Vital Signs Last Vital Signs Temp Pulse Resp BP Pulse Ox 98.7 F 75 20 120/81 99 05/07/16 11:36 05/07/16 11:36 05/07/16 11:36 05/07/16 11:36 05/07/16 11:36 <Akhil,Nikita - Last Filed: 05/07/16 13:43> - Vital Signs Last Vital Signs Temp Pulse Resp BP Pulse Ox 98.7 F 75 20 120/81 99 05/07/16 11:36 05/07/16 11:36 05/07/16 11:36 05/07/16 11:36 05/07/16 11:36 - Physical Exam Comments: 05/07/16 14:08 GENERAL: The patient is awake, alert, and fully oriented, Nontoxic - in no acute distress. HEAD: Contusion of the posterior occipital scalp with mild tenderness. EYES: extraocular movements intact, sclera anicteric, conjunctiva clear. ENT: Normal voice, moist mucous membranes. NECK: Normal range of motion, supple. LUNGS: Breath sounds equal, clear to auscultation bilaterally. No wheezes, no rhonchi, no rales. HEART: Regular rate and rhythm, without murmur, rub or gallop. ABDOMEN: Soft, nontender, normoactive bowel sounds. No guarding, no rebound. No CVA tenderness. NEUROLOGICAL: No facial asymmetry. Normal speech. PSYCH: Normal mood, normal affect. SKIN: Warm, dry, normal turgor. BACK: No midline tenderness to the cervical, thoracic or lumbar spine MSK: FROM of b/l shoulders, elbows, wrist. FROM of hips, knees, ankles - No signs of ecchymosis, erythema, or crepitus noted on palpation extremities, chest wall, clavicals, ribs, back. <Elsa Archuleta - Last Filed: 05/07/16 14:09> ED Treatment Course - RADIOLOGY Radiology Studies Ordered: Category Date Time Status CERVICAL SPINE CT W/O CONTR [CT] Stat CT Scan 05/07/16 12:[address] WITHOUT CONTRAST [CT] Stat CT Scan 05/07/16 12:00 Ordered <Nikita Landaverde - Last Filed: 05/07/16 13:43> Medical Decision Making - Medical Decision Making 05/07/16 12:02 51y M hx of htn, dm, hl, cva (with chronic balance problems) cad s/p stents on plavix presents s/p fall when he was gettin gout of bed - denies nay complaints currently including headache, dizziness, nausea, vomiting, vision changes, numbness/tingling. pt has no complaints currently, pt has small contusion on the back of his scalp, will obtain CT head and cspine if negative will d/c back to [facility]. the pts labs upon his admissoin showed normal LFTs. A portion of this note was documented by scribe services under my direction. I have reviewed the details of the note, within reason, and agree with the documentation with the following case summary and management plan written by me 05/07/16 13:44 CT head and C-spine are negative Will discharge patient back to [facility] for detox I discussed the physical exam findings, ancillary test results and final diagnoses with the patient. I answered all of the patient's questions. The patient was satisfied with the care received and felt comfortable with the discharge plan and treatment plan. The patient will call their primary care physician within 24 hours to arrange follow-up and will return to the Emergency Department with any new, persistent or worsening symptoms. <Nikita Landaverde - Last Filed: 05/07/16 13:43> - Medical Decision Making 05/07/16 13:22 EXAM: CT/HEAD CT WITHOUT CONTRAST Reviewed By: Dr. Calixto Dueñas IMPRESSION: No evidence of acute intracranial pathology. EXAM: CT/CERVICAL SPINE CT W/O CONTR Reviewed By: Dr. Calixto Dueñas IMPRESSION: Essentially normal CT scan of the cervical spine with no fracture or acute pathology. <Elsa Archuleta - Last Filed: 05/07/16 14:09> *DC/Admit/Observation/Transfer - Discharge Dispostion Admit: No <Nikita Landaverde - Last Filed: 05/07/16 13:43> - Attestations Scribe Attestion: 05/07/16 12:59 Documentation prepared by Elsa Archuleta, acting as medical data analyst for Nikita Landaverde MD. <Elsa Archuleta - Last Filed: 05/07/16 14:09> Diagnosis at time of Disposition: Head injury Qualifiers: Encounter type: initial encounter Qualified Code(s): S09.90XA - Unspecified injury of head, initial encounter Contusion of scalp Qualifiers: Encounter type: initial encounter Qualified Code(s): S00.03XA - Contusion of scalp, initial encounter - Discharge Dispostion Disposition: I.P. ALCOHOL/SUBS ABUSE REHAB Condition at time of disposition: Improved - Patient Instructions Printed Discharge Instructions: DI for Closed Head Injury, DI for Contusion Additional Instructions: Return to the emergency department immediately with ANY new, persistent or worsening symptoms. You MUST call and follow up with your doctor tomorrow for further evaluation of your symptoms. Results were discussed with you. Please make sure your doctor reviews the results of your emergency evaluation. If you had any xrays during your visit, it was read preliminarily by myself, a Radiologist will review it and if there are any additional findings we will call you. Print Language: MALTESE
--- NOTE | 2016-05-30 13:03 | PN ---
BHS Progress Note Note: 51y/o m pt with h/o htn, cad s/p 2 stents, s/p cva , dm 2 , hyperlipidemia who fell from bed . Pt hit rt temp. head and rt elbow . exam Vital Signs Temperature 98.7 F 05/07/16 11:36 Pulse Rate 75 05/07/16 11:36 Respiratory Rate 20 05/07/16 11:36 Blood Pressure 120/81 05/07/16 11:36 O2 Sat by Pulse Oximetry (%) 99 05/07/16 11:36 pt aox3 in nad head nc , a/t , no acute bleeding or bruise rt elbow negative neuro aox3 , intact cn/s imp pt s/p fall with multiple medical problems on plavix and asa needs further eval in ED. plan - ed eval signed out to Dr vaughan in ED [facility] ambulette activated fall protocol #2
== END 2016-05-07 13:48 | disposition other institution (70) ==
LOC: JER 11:31
DX: S00.03XA Contusion of scalp, initial encounter (principal); I25.10 Atherosclerotic heart disease of native coronary artery without angina pectoris; I10 Essential (primary) hypertension; Z95.5 Presence of coronary angioplasty implant and graft; E11.9 Type 2 diabetes mellitus without complications; Z79.84 Long term (current) use of oral hypoglycemic drugs; E78.00 Pure hypercholesterolemia, unspecified; I69.851 Hemiplegia and hemiparesis following other cerebrovascular disease affecting right dominant side; F11.20 Opioid dependence, uncomplicated; F10.20 Alcohol dependence, uncomplicated; W06.XXXA Fall from bed, initial encounter; Y93.89 Activity, other specified; Y92.230 Patient room in hospital as the place of occurrence of the external cause
CPT/HCPCS: 70450-TC; 72125-TC; 99282-25

== ENCOUNTER 2016-05-09 12:27 | Inpatient (IN) | payer OTHER ==
[2016-05-09] MEDS ORDERED: MENTHOL/PHENOL 1 EACH UD MM PRN (12:41)
[2016-05-09] MEDS ORDERED: MAGNESIUM CITRATE 300 ML BOTTLE PO PRN (12:41)
[2016-05-09] MEDS ORDERED: MAGNESIUM HYDROX 2400MG/30ML ORAL SUSPENSION 30 ML CUP PO PRN (12:41)
[2016-05-09] MEDS ORDERED: NICOTINE POLACRILEX 4 MG GUM BUC PRN (12:41)
[2016-05-09] MEDS ORDERED: LOPERAMIDE HCL 2 MG CAPSULE PO PRN (12:41)
[2016-05-09] MEDS ORDERED: ACETAMINOPHEN 325 MG TABLET (FP) PO PRN (12:41)
[2016-05-09] MEDS ORDERED: guaiFENesin/D-METHORPHAN HB 10 ML UNIT-DOSE CUPS PO PRN (12:41)
[2016-05-09] MEDS ORDERED: MAG HYDROX/AL HYDROX/SIMETH 30 ML UNIT-DOSE CUP PO PRN (12:41)
[2016-05-09] MEDS ORDERED: IBUPROFEN 400 MG TABLET (FP) PO PRN (12:41)
--- NOTE | 2016-05-09 13:06 | HP ---
Psychiatrist Admission - Data Date of interview: 05/09/16 Admission source: 3N Identifying data: This is the second inpatient rehabilitation admission for this 51 years old single male, father of a 17 years old son, unemployed on food stamp, living with family. Medical History: ignificant for history of HTN, Hyperlipidemia, DM, CAD with s/ p stent, S/P CVA with right hemiplegia( no residual at present), renal insufficiency, PPD+. Smokes cigarettes 1ppd Psychiatric History: Denies history of psychiatric treatment, however, reports being prescribed Ambien 10 mg po HS for insomnia, while in detox seen by Dr Ryan and continued medication. Discussed with the patient that he can't be on ambien while in rehab and recommended Trazodone, indications and properteis discussed with the patient patient agreed to start medication. Physical/Sexual Abuse/Trauma History: Denies history of physical, sexual abuse Additional Comment: Reports 3 previous felony convictions and he is on parole till 2019. his treatment is mandated. Vital Signs: Vital Signs - 24 hr 05/09/16 12:56 Temperature 98.4 F Pulse Rate 86 Respiratory 18 Rate Blood Pressure 101/58 Allergies/Adverse Reactions: Allergies Allergy/AdvReac Type Severity Reaction Status Date / Time No Known Allergies Allergy Verified 05/09/16 12:47 Date of last physical exam: 05/04/16 Concur with the findings of this exam: Yes - Substance Abuse/Tx History Hx Alcohol Use: Yes Hx Substance Use: Yes Substance Use Type: Alcohol (1 Pint of liquor), Heroin (15 bags daily) Hx Substance Use Treatment: Yes (signed ama on 2011 from ) - Admission Criteria Previous failed treatment: Yes Poor recovery environment: Yes Comorbidities: Yes Lacks judgement: Yes Mental Status Exam - Mental Status Exam Alert and Oriented to: Time, Place, Person Cognitive Function: Grossly Intact Patient Appearance: Unkempt Mood: Depressed, Anxious, Irritable Affect: Mood Congruent Patient Behavior: Cooperative Speech Pattern: Clear, Appropriate Voice Loudness: Normal Thought Process: Intact, Goal Oriented Thought Disorder: Not Present Hallucinations: Denies Suicidal Ideation: Denies Homicidal Ideation: Denies Insight/Judgement: Fair Sleep: Poorly, Difficulty falling asleep Appetite: Good Muscle strength/Tone: Normal Gait/Station: Normal Psychiatric Findings - Problem List ([place] 1, 2,3) (1) Substance induced mood disorder Current Visit: No Status: Acute (2) Substance-induced sleep disorder Current Visit: No Status: Acute (3) DM Diabetes mellitus type 2 Current Visit: No Status: Chronic (4) Essential hypertension Current Visit: No Status: Chronic (5) Hypercholesterolemia Current Visit: No Status: Chronic (6) Nicotine dependence Current Visit: No Status: Chronic (7) coronary artery disease with stent Current Visit: No Status: Chronic (8) Opioid dependence Current Visit: Yes Status: Acute (9) Alcohol dependence Current Visit: Yes Status: Acute - Initial Treatment Plan Initial Treatment Plan: will add Trazodone 50 mg po hs, monitor progress as needed.
--- NOTE | 2016-05-09 16:24 | HP ---
[facility] Rehab Assess/Revision - Admission History Admitted to Rehab from: [facility] [place] Date of Admission to Rehab: 05/09/16 - Vital signs Vital Signs: Vital Signs Period Temp Pulse Resp BP Sys/Olmos Pulse Ox Last 24 Hr 98.4 F 86 18 101/58 - Findings Detox History & Physical reviewed: Yes Concur with findings: Yes Comments/Additional Findings: trasnferred from detox to rehab admission as per protocol
[2016-05-09] MEDS: INSULIN SLIDING SCALE (NOVOLOG) 1 VIAL SQ SCH (16:55)
[2016-05-09] MEDS ORDERED: INSULIN (NOVOLOG) ASPART 100 UNITS/ML 10ML VIAL ONE (16:56)
[2016-05-09] MEDS: metFORMIN HCL 500 MG TABLET (FP) PO SCH (16:56)
[2016-05-09] MEDS: THIAMINE HCL 100 MG TABLET (FP) PO SCH (21:39)
[2016-05-09] MEDS: traZODone HCL 50 MG TABLET (FP) PO SCH (21:39)
[2016-05-10] MEDS ORDERED: INSULIN (NOVOLOG) ASPART 100 UNITS/ML 10ML VIAL ONE ×2 (06:41→17:12)
[2016-05-10] MEDS: metFORMIN HCL 500 MG TABLET (FP) PO SCH ×2 (06:55→17:13)
[2016-05-10] MEDS: INSULIN SLIDING SCALE (NOVOLOG) 1 VIAL SQ SCH ×2 (06:55→17:12)
[2016-05-10] MEDS: LISINOPRIL 20 MG TABLET (FP) PO SCH ×2 (10:07→12:00)
[2016-05-10] MEDS: HYDROCHLOROTHIAZIDE 25 MG TABLET (FP) PO SCH (10:07)
[2016-05-10] MEDS: METOPROLOL TARTRATE 25 MG TABLET (FP) PO SCH ×2 (10:07→12:00)
[2016-05-10] MEDS: PRENATAL VITAMINS W/ FOLIC ACID TABLET (FP) PO SCH (10:07)
[2016-05-10] MEDS ORDERED: ONDANSETRON *ODT* 4 MG TABLET SL PRN (13:18)
[2016-05-10] MEDS: traZODone HCL 50 MG TABLET (FP) PO SCH (21:17)
[2016-05-10] MEDS: THIAMINE HCL 100 MG TABLET (FP) PO SCH (21:17)
[2016-05-11] MEDS ORDERED: INSULIN (NOVOLOG) ASPART 100 UNITS/ML 10ML VIAL ONE ×2 (06:34→16:42)
[2016-05-11] MEDS: INSULIN SLIDING SCALE (NOVOLOG) 1 VIAL SQ SCH ×2 (06:34→16:45)
[2016-05-11] MEDS: metFORMIN HCL 500 MG TABLET (FP) PO SCH ×2 (06:35→16:43)
[2016-05-11] MEDS: PRENATAL VITAMINS W/ FOLIC ACID TABLET (FP) PO SCH (10:04)
[2016-05-11] MEDS: CLOPIDOGREL BISULFATE 75 MG TABLET (FP) PO SCH (10:05)
[2016-05-11] MEDS: LISINOPRIL 20 MG TABLET (FP) PO SCH (10:05)
[2016-05-11] MEDS: ASPIRIN 81 MG CHEWABLE TABLETS PO SCH (10:05)
[2016-05-11] MEDS: METOPROLOL TARTRATE 25 MG TABLET (FP) PO SCH (10:05)
[2016-05-11] MEDS: HYDROCHLOROTHIAZIDE 25 MG TABLET (FP) PO SCH (10:06)
[2016-05-11] MEDS: traZODone HCL 50 MG TABLET (FP) PO SCH (21:23)
[2016-05-11] MEDS: THIAMINE HCL 100 MG TABLET (FP) PO SCH (21:23)
[2016-05-12] MEDS: metFORMIN HCL 500 MG TABLET (FP) PO SCH ×2 (06:21→16:48)
[2016-05-12] MEDS ORDERED: INSULIN (NOVOLOG) ASPART 100 UNITS/ML 10ML VIAL ONE ×2 (06:22→16:47)
[2016-05-12] MEDS: INSULIN SLIDING SCALE (NOVOLOG) 1 VIAL SQ SCH ×2 (06:22→16:47)
[2016-05-12] MEDS: HYDROCHLOROTHIAZIDE 25 MG TABLET (FP) PO SCH (10:28)
[2016-05-12] MEDS: ASPIRIN 81 MG CHEWABLE TABLETS PO SCH (10:28)
[2016-05-12] MEDS: LISINOPRIL 20 MG TABLET (FP) PO SCH (10:28)
[2016-05-12] MEDS: PRENATAL VITAMINS W/ FOLIC ACID TABLET (FP) PO SCH (10:28)
[2016-05-12] MEDS: CLOPIDOGREL BISULFATE 75 MG TABLET (FP) PO SCH (10:29)
[2016-05-12] MEDS: METOPROLOL TARTRATE 25 MG TABLET (FP) PO SCH (10:29)
[2016-05-12] MEDS: traZODone HCL 50 MG TABLET (FP) PO SCH (21:05)
[2016-05-12] MEDS: THIAMINE HCL 100 MG TABLET (FP) PO SCH (21:05)
[2016-05-13] MEDS: metFORMIN HCL 500 MG TABLET (FP) PO SCH ×2 (06:30→16:51)
[2016-05-13] MEDS ORDERED: INSULIN (NOVOLOG) ASPART 100 UNITS/ML 10ML VIAL ONE ×2 (06:31→16:48)
[2016-05-13] MEDS: INSULIN SLIDING SCALE (NOVOLOG) 1 VIAL SQ SCH ×2 (06:32→16:49)
[2016-05-13] MEDS: ASPIRIN 81 MG CHEWABLE TABLETS PO SCH (10:16)
[2016-05-13] MEDS: METOPROLOL TARTRATE 25 MG TABLET (FP) PO SCH (10:16)
[2016-05-13] MEDS: CLOPIDOGREL BISULFATE 75 MG TABLET (FP) PO SCH (10:16)
[2016-05-13] MEDS: PRENATAL VITAMINS W/ FOLIC ACID TABLET (FP) PO SCH (10:16)
[2016-05-13] MEDS: HYDROCHLOROTHIAZIDE 25 MG TABLET (FP) PO SCH (10:17)
[2016-05-13] MEDS: LISINOPRIL 20 MG TABLET (FP) PO SCH (10:17)
[2016-05-13] MEDS: traZODone HCL 50 MG TABLET (FP) PO SCH (21:23)
[2016-05-13] MEDS: THIAMINE HCL 100 MG TABLET (FP) PO SCH (21:23)
[2016-05-13] MEDS: diphenhydrAMINE HCL 50 MG CAPSULE PO PRN (21:24)
[2016-05-14] MEDS ORDERED: INSULIN (NOVOLOG) ASPART 100 UNITS/ML 10ML VIAL ONE ×2 (06:36→16:49)
[2016-05-14] MEDS: metFORMIN HCL 500 MG TABLET (FP) PO SCH ×2 (06:36→16:44)
[2016-05-14] MEDS: INSULIN SLIDING SCALE (NOVOLOG) 1 VIAL SQ SCH ×2 (06:37→16:50)
[2016-05-14] MEDS: LISINOPRIL 20 MG TABLET (FP) PO SCH (10:15)
[2016-05-14] MEDS: ASPIRIN 81 MG CHEWABLE TABLETS PO SCH (10:15)
[2016-05-14] MEDS: PRENATAL VITAMINS W/ FOLIC ACID TABLET (FP) PO SCH (10:15)
[2016-05-14] MEDS: HYDROCHLOROTHIAZIDE 25 MG TABLET (FP) PO SCH (10:15)
[2016-05-14] MEDS: CLOPIDOGREL BISULFATE 75 MG TABLET (FP) PO SCH (10:15)
[2016-05-14] MEDS: METOPROLOL TARTRATE 25 MG TABLET (FP) PO SCH (10:15)
[2016-05-14] MEDS: diphenhydrAMINE HCL 50 MG CAPSULE PO PRN (21:09)
[2016-05-14] MEDS: THIAMINE HCL 100 MG TABLET (FP) PO SCH (21:09)
[2016-05-14] MEDS: traZODone HCL 50 MG TABLET (FP) PO SCH (21:09)
[2016-05-15] MEDS: metFORMIN HCL 500 MG TABLET (FP) PO SCH ×2 (06:21→16:46)
[2016-05-15] MEDS ORDERED: INSULIN (NOVOLOG) ASPART 100 UNITS/ML 10ML VIAL ONE ×2 (06:22→16:45)
[2016-05-15] MEDS: INSULIN SLIDING SCALE (NOVOLOG) 1 VIAL SQ SCH ×2 (06:23→16:45)
[2016-05-15] MEDS: METOPROLOL TARTRATE 25 MG TABLET (FP) PO SCH (09:52)
[2016-05-15] MEDS: CLOPIDOGREL BISULFATE 75 MG TABLET (FP) PO SCH (09:52)
[2016-05-15] MEDS: ASPIRIN 81 MG CHEWABLE TABLETS PO SCH (09:52)
[2016-05-15] MEDS: PRENATAL VITAMINS W/ FOLIC ACID TABLET (FP) PO SCH (09:52)
[2016-05-15] MEDS: HYDROCHLOROTHIAZIDE 25 MG TABLET (FP) PO SCH (09:52)
[2016-05-15] MEDS: LISINOPRIL 20 MG TABLET (FP) PO SCH (09:52)
[2016-05-15] MEDS: traZODone HCL 50 MG TABLET (FP) PO SCH (21:10)
[2016-05-15] MEDS: THIAMINE HCL 100 MG TABLET (FP) PO SCH (21:10)
[2016-05-16] MEDS: metFORMIN HCL 500 MG TABLET (FP) PO SCH ×2 (06:33→17:16)
[2016-05-16] MEDS: INSULIN SLIDING SCALE (NOVOLOG) 1 VIAL SQ SCH ×3 (06:34→17:29)
[2016-05-16] MEDS ORDERED: INSULIN (NOVOLOG) ASPART 100 UNITS/ML 10ML VIAL ONE ×2 (06:40→17:16)
[2016-05-16] MEDS: PRENATAL VITAMINS W/ FOLIC ACID TABLET (FP) PO SCH (10:19)
[2016-05-16] MEDS: ASPIRIN 81 MG CHEWABLE TABLETS PO SCH (10:19)
[2016-05-16] MEDS: LISINOPRIL 20 MG TABLET (FP) PO SCH (10:19)
[2016-05-16] MEDS: HYDROCHLOROTHIAZIDE 25 MG TABLET (FP) PO SCH (10:19)
[2016-05-16] MEDS: CLOPIDOGREL BISULFATE 75 MG TABLET (FP) PO SCH (10:19)
[2016-05-16] MEDS: METOPROLOL TARTRATE 25 MG TABLET (FP) PO SCH (10:19)
[2016-05-16] MEDS ORDERED: INSULIN SLIDING SCALE (NOVOLOG) 1 VIAL SQ SCH (17:14)
[2016-05-16] MEDS: THIAMINE HCL 100 MG TABLET (FP) PO SCH (21:12)
[2016-05-16] MEDS: traZODone HCL 50 MG TABLET (FP) PO SCH (21:12)
[2016-05-17] MEDS: metFORMIN HCL 500 MG TABLET (FP) PO SCH ×2 (06:22→16:42)
[2016-05-17] MEDS: INSULIN SLIDING SCALE (NOVOLOG) 1 VIAL SQ SCH ×2 (06:22→16:41)
[2016-05-17] MEDS ORDERED: INSULIN (NOVOLOG) ASPART 100 UNITS/ML 10ML VIAL ONE ×2 (06:37→16:41)
[2016-05-17] MEDS: PRENATAL VITAMINS W/ FOLIC ACID TABLET (FP) PO SCH (10:02)
[2016-05-17] MEDS: HYDROCHLOROTHIAZIDE 25 MG TABLET (FP) PO SCH (10:02)
[2016-05-17] MEDS: CLOPIDOGREL BISULFATE 75 MG TABLET (FP) PO SCH (10:02)
[2016-05-17] MEDS: ASPIRIN 81 MG CHEWABLE TABLETS PO SCH (10:02)
[2016-05-17] MEDS: METOPROLOL TARTRATE 25 MG TABLET (FP) PO SCH (10:02)
[2016-05-17] MEDS: LISINOPRIL 20 MG TABLET (FP) PO SCH (10:02)
[2016-05-17] MEDS: traZODone HCL 50 MG TABLET (FP) PO SCH (21:20)
[2016-05-17] MEDS: THIAMINE HCL 100 MG TABLET (FP) PO SCH (21:20)
[2016-05-17] MEDS: GABAPENTIN 100 MG CAPSULE (FP) PO SCH (21:20)
[2016-05-17] MEDS: MINERAL OIL/PETROLAT/WATER TOPICAL CREAM 113 GM JAR TP SCH (21:22)
[2016-05-18] MEDS: GABAPENTIN 100 MG CAPSULE (FP) PO SCH ×3 (06:08→21:29)
[2016-05-18] MEDS: metFORMIN HCL 500 MG TABLET (FP) PO SCH ×2 (06:08→16:39)
[2016-05-18] MEDS: INSULIN SLIDING SCALE (NOVOLOG) 1 VIAL SQ SCH ×2 (06:08→16:40)
[2016-05-18] MEDS ORDERED: INSULIN (NOVOLOG) ASPART 100 UNITS/ML 10ML VIAL ONE ×2 (06:47→16:39)
[2016-05-18] MEDS: METOPROLOL TARTRATE 25 MG TABLET (FP) PO SCH (09:59)
[2016-05-18] MEDS: HYDROCHLOROTHIAZIDE 25 MG TABLET (FP) PO SCH (09:59)
[2016-05-18] MEDS: ASPIRIN 81 MG CHEWABLE TABLETS PO SCH (09:59)
[2016-05-18] MEDS: LISINOPRIL 20 MG TABLET (FP) PO SCH (09:59)
[2016-05-18] MEDS: CLOPIDOGREL BISULFATE 75 MG TABLET (FP) PO SCH (09:59)
[2016-05-18] MEDS: PRENATAL VITAMINS W/ FOLIC ACID TABLET (FP) PO SCH (09:59)
[2016-05-18] MEDS: MINERAL OIL/PETROLAT/WATER TOPICAL CREAM 113 GM JAR TP SCH ×2 (12:10→21:29)
[2016-05-18] MEDS: traZODone HCL 50 MG TABLET (FP) PO SCH (21:29)
[2016-05-18] MEDS: THIAMINE HCL 100 MG TABLET (FP) PO SCH (21:30)
[2016-05-18] MEDS: diphenhydrAMINE HCL 50 MG CAPSULE PO PRN (21:30)
[2016-05-19] MEDS ORDERED: INSULIN (NOVOLOG) ASPART 100 UNITS/ML 10ML VIAL ONE ×2 (06:08→16:44)
[2016-05-19] MEDS: INSULIN SLIDING SCALE (NOVOLOG) 1 VIAL SQ SCH ×2 (06:09→16:44)
[2016-05-19] MEDS: metFORMIN HCL 500 MG TABLET (FP) PO SCH ×2 (06:09→16:45)
[2016-05-19] MEDS: GABAPENTIN 100 MG CAPSULE (FP) PO SCH ×3 (06:09→21:04)
[2016-05-19] MEDS: LISINOPRIL 20 MG TABLET (FP) PO SCH (10:02)
[2016-05-19] MEDS: ASPIRIN 81 MG CHEWABLE TABLETS PO SCH (10:02)
[2016-05-19] MEDS: HYDROCHLOROTHIAZIDE 25 MG TABLET (FP) PO SCH (10:02)
[2016-05-19] MEDS: PRENATAL VITAMINS W/ FOLIC ACID TABLET (FP) PO SCH (10:02)
[2016-05-19] MEDS: CLOPIDOGREL BISULFATE 75 MG TABLET (FP) PO SCH (10:02)
[2016-05-19] MEDS: MINERAL OIL/PETROLAT/WATER TOPICAL CREAM 113 GM JAR TP SCH ×2 (10:04→21:05)
[2016-05-19] MEDS: METOPROLOL TARTRATE 25 MG TABLET (FP) PO SCH (10:04)
[2016-05-19] MEDS: THIAMINE HCL 100 MG TABLET (FP) PO SCH (21:04)
[2016-05-19] MEDS: traZODone HCL 50 MG TABLET (FP) PO SCH (21:04)
[2016-05-20] MEDS: GABAPENTIN 100 MG CAPSULE (FP) PO SCH ×3 (06:26→21:33)
[2016-05-20] MEDS: INSULIN SLIDING SCALE (NOVOLOG) 1 VIAL SQ SCH ×2 (06:26→16:57)
[2016-05-20] MEDS: metFORMIN HCL 500 MG TABLET (FP) PO SCH ×2 (06:26→16:57)
[2016-05-20] MEDS ORDERED: INSULIN (NOVOLOG) ASPART 100 UNITS/ML 10ML VIAL ONE ×2 (06:52→16:55)
[2016-05-20] MEDS: PRENATAL VITAMINS W/ FOLIC ACID TABLET (FP) PO SCH (10:05)
[2016-05-20] MEDS: METOPROLOL TARTRATE 25 MG TABLET (FP) PO SCH (10:06)
[2016-05-20] MEDS: ASPIRIN 81 MG CHEWABLE TABLETS PO SCH (10:06)
[2016-05-20] MEDS: LISINOPRIL 20 MG TABLET (FP) PO SCH (10:06)
[2016-05-20] MEDS: HYDROCHLOROTHIAZIDE 25 MG TABLET (FP) PO SCH (10:06)
[2016-05-20] MEDS: CLOPIDOGREL BISULFATE 75 MG TABLET (FP) PO SCH (10:06)
[2016-05-20] MEDS: MINERAL OIL/PETROLAT/WATER TOPICAL CREAM 113 GM JAR TP SCH ×2 (10:07→21:34)
[2016-05-20] MEDS: traZODone HCL 50 MG TABLET (FP) PO SCH (21:33)
[2016-05-20] MEDS: THIAMINE HCL 100 MG TABLET (FP) PO SCH (21:33)
[2016-05-21] MEDS: metFORMIN HCL 500 MG TABLET (FP) PO SCH ×2 (06:39→17:02)
[2016-05-21] MEDS: GABAPENTIN 100 MG CAPSULE (FP) PO SCH ×3 (06:39→21:12)
[2016-05-21] MEDS: INSULIN SLIDING SCALE (NOVOLOG) 1 VIAL SQ SCH ×2 (06:39→17:01)
[2016-05-21] MEDS ORDERED: INSULIN (NOVOLOG) ASPART 100 UNITS/ML 10ML VIAL ONE ×2 (06:58→17:01)
[2016-05-21] MEDS: LISINOPRIL 20 MG TABLET (FP) PO SCH (10:42)
[2016-05-21] MEDS: PRENATAL VITAMINS W/ FOLIC ACID TABLET (FP) PO SCH (10:42)
[2016-05-21] MEDS: CLOPIDOGREL BISULFATE 75 MG TABLET (FP) PO SCH (10:42)
[2016-05-21] MEDS: METOPROLOL TARTRATE 25 MG TABLET (FP) PO SCH (10:42)
[2016-05-21] MEDS: ASPIRIN 81 MG CHEWABLE TABLETS PO SCH (10:42)
[2016-05-21] MEDS: HYDROCHLOROTHIAZIDE 25 MG TABLET (FP) PO SCH (10:42)
[2016-05-21] MEDS: MINERAL OIL/PETROLAT/WATER TOPICAL CREAM 113 GM JAR TP SCH ×2 (10:43→21:12)
[2016-05-21] MEDS: traZODone HCL 50 MG TABLET (FP) PO SCH (21:12)
[2016-05-21] MEDS: THIAMINE HCL 100 MG TABLET (FP) PO SCH (21:12)
[2016-05-22] MEDS ORDERED: INSULIN (NOVOLOG) ASPART 100 UNITS/ML 10ML VIAL ONE ×2 (06:30→16:57)
[2016-05-22] MEDS: INSULIN SLIDING SCALE (NOVOLOG) 1 VIAL SQ SCH ×2 (06:30→17:10)
[2016-05-22] MEDS: metFORMIN HCL 500 MG TABLET (FP) PO SCH ×2 (06:31→17:10)
[2016-05-22] MEDS: GABAPENTIN 100 MG CAPSULE (FP) PO SCH ×3 (06:49→22:04)
[2016-05-22] MEDS: CLOPIDOGREL BISULFATE 75 MG TABLET (FP) PO SCH (10:03)
[2016-05-22] MEDS: METOPROLOL TARTRATE 25 MG TABLET (FP) PO SCH (10:03)
[2016-05-22] MEDS: PRENATAL VITAMINS W/ FOLIC ACID TABLET (FP) PO SCH (10:03)
[2016-05-22] MEDS: HYDROCHLOROTHIAZIDE 25 MG TABLET (FP) PO SCH (10:04)
[2016-05-22] MEDS: ASPIRIN 81 MG CHEWABLE TABLETS PO SCH (10:04)
[2016-05-22] MEDS: LISINOPRIL 20 MG TABLET (FP) PO SCH (10:04)
[2016-05-22] MEDS: MINERAL OIL/PETROLAT/WATER TOPICAL CREAM 113 GM JAR TP SCH ×2 (10:06→22:06)
[2016-05-22] MEDS: THIAMINE HCL 100 MG TABLET (FP) PO SCH (22:04)
[2016-05-22] MEDS: traZODone HCL 50 MG TABLET (FP) PO SCH (22:04)
[2016-05-22] MEDS: BACITRACIN 0.9 GM PACKET TP SCH (22:04)
[2016-05-23] MEDS: diphenhydrAMINE HCL 50 MG CAPSULE PO PRN (02:12)
[2016-05-23] MEDS ORDERED: INSULIN (NOVOLOG) ASPART 100 UNITS/ML 10ML VIAL ONE ×2 (06:13→16:58)
[2016-05-23] MEDS: metFORMIN HCL 500 MG TABLET (FP) PO SCH ×2 (06:14→16:40)
[2016-05-23] MEDS: INSULIN SLIDING SCALE (NOVOLOG) 1 VIAL SQ SCH ×2 (06:14→17:02)
[2016-05-23] MEDS: GABAPENTIN 100 MG CAPSULE (FP) PO SCH ×3 (06:14→21:16)
[2016-05-23] MEDS: CLOPIDOGREL BISULFATE 75 MG TABLET (FP) PO SCH (10:15)
[2016-05-23] MEDS: METOPROLOL TARTRATE 25 MG TABLET (FP) PO SCH (10:15)
[2016-05-23] MEDS: ASPIRIN 81 MG CHEWABLE TABLETS PO SCH (10:15)
[2016-05-23] MEDS: LISINOPRIL 20 MG TABLET (FP) PO SCH (10:15)
[2016-05-23] MEDS: HYDROCHLOROTHIAZIDE 25 MG TABLET (FP) PO SCH (10:15)
[2016-05-23] MEDS: PRENATAL VITAMINS W/ FOLIC ACID TABLET (FP) PO SCH (10:15)
[2016-05-23] MEDS: BACITRACIN 0.9 GM PACKET TP SCH ×2 (10:15→21:16)
[2016-05-23] MEDS: MINERAL OIL/PETROLAT/WATER TOPICAL CREAM 113 GM JAR TP SCH ×2 (10:16→21:16)
[2016-05-23] MEDS: traZODone HCL 50 MG TABLET (FP) PO SCH (21:16)
[2016-05-23] MEDS: THIAMINE HCL 100 MG TABLET (FP) PO SCH (21:16)
[2016-05-24] MEDS ORDERED: INSULIN (NOVOLOG) ASPART 100 UNITS/ML 10ML VIAL ONE ×2 (06:02→16:38)
[2016-05-24] MEDS: GABAPENTIN 100 MG CAPSULE (FP) PO SCH ×3 (06:41→21:06)
[2016-05-24] MEDS: metFORMIN HCL 500 MG TABLET (FP) PO SCH ×2 (06:41→16:38)
[2016-05-24] MEDS: INSULIN SLIDING SCALE (NOVOLOG) 1 VIAL SQ SCH ×2 (06:42→16:38)
[2016-05-24] MEDS: ASPIRIN 81 MG CHEWABLE TABLETS PO SCH (10:06)
[2016-05-24] MEDS: HYDROCHLOROTHIAZIDE 25 MG TABLET (FP) PO SCH (10:06)
[2016-05-24] MEDS: PRENATAL VITAMINS W/ FOLIC ACID TABLET (FP) PO SCH (10:06)
[2016-05-24] MEDS: LISINOPRIL 20 MG TABLET (FP) PO SCH (10:07)
[2016-05-24] MEDS: BACITRACIN 0.9 GM PACKET TP SCH ×2 (10:07→21:07)
[2016-05-24] MEDS: CLOPIDOGREL BISULFATE 75 MG TABLET (FP) PO SCH (10:07)
[2016-05-24] MEDS: METOPROLOL TARTRATE 25 MG TABLET (FP) PO SCH (10:07)
[2016-05-24] MEDS: MINERAL OIL/PETROLAT/WATER TOPICAL CREAM 113 GM JAR TP SCH ×2 (10:08→21:07)
[2016-05-24] MEDS: traZODone HCL 50 MG TABLET (FP) PO SCH (21:06)
[2016-05-24] MEDS: diphenhydrAMINE HCL 50 MG CAPSULE PO PRN (21:06)
[2016-05-24] MEDS: THIAMINE HCL 100 MG TABLET (FP) PO SCH (21:06)
[2016-05-25] MEDS: GABAPENTIN 100 MG CAPSULE (FP) PO SCH ×3 (06:23→21:34)
[2016-05-25] MEDS: metFORMIN HCL 500 MG TABLET (FP) PO SCH ×2 (06:23→16:56)
[2016-05-25] MEDS: INSULIN SLIDING SCALE (NOVOLOG) 1 VIAL SQ SCH ×2 (06:23→16:55)
[2016-05-25] MEDS ORDERED: INSULIN (NOVOLOG) ASPART 100 UNITS/ML 10ML VIAL ONE ×2 (06:26→16:56)
[2016-05-25] MEDS: HYDROCHLOROTHIAZIDE 25 MG TABLET (FP) PO SCH (09:07)
[2016-05-25] MEDS: METOPROLOL TARTRATE 25 MG TABLET (FP) PO SCH (09:33)
[2016-05-25] MEDS: ASPIRIN 81 MG CHEWABLE TABLETS PO SCH (09:33)
[2016-05-25] MEDS: BACITRACIN 0.9 GM PACKET TP SCH ×2 (09:33→21:34)
[2016-05-25] MEDS: CLOPIDOGREL BISULFATE 75 MG TABLET (FP) PO SCH (09:33)
[2016-05-25] MEDS: LISINOPRIL 20 MG TABLET (FP) PO SCH (09:34)
[2016-05-25] MEDS: MINERAL OIL/PETROLAT/WATER TOPICAL CREAM 113 GM JAR TP SCH ×2 (09:35→21:34)
[2016-05-25] MEDS: PRENATAL VITAMINS W/ FOLIC ACID TABLET (FP) PO SCH (09:35)
[2016-05-25] MEDS: traZODone HCL 50 MG TABLET (FP) PO SCH (21:34)
[2016-05-25] MEDS: THIAMINE HCL 100 MG TABLET (FP) PO SCH (21:34)
[2016-05-26] MEDS: P-EPHED 60MG/TRIPROLIDI 2.5MG TABLET PO PRN ×3 (05:59→21:05)
[2016-05-26] MEDS: GABAPENTIN 100 MG CAPSULE (FP) PO SCH ×3 (05:59→21:04)
[2016-05-26] MEDS: INSULIN SLIDING SCALE (NOVOLOG) 1 VIAL SQ SCH ×2 (06:00→16:42)
[2016-05-26] MEDS: metFORMIN HCL 500 MG TABLET (FP) PO SCH ×2 (06:00→16:42)
[2016-05-26] MEDS ORDERED: INSULIN (NOVOLOG) ASPART 100 UNITS/ML 10ML VIAL ONE ×2 (06:34→16:46)
[2016-05-26] MEDS: ASPIRIN 81 MG CHEWABLE TABLETS PO SCH (09:43)
[2016-05-26] MEDS: CLOPIDOGREL BISULFATE 75 MG TABLET (FP) PO SCH (09:43)
[2016-05-26] MEDS: LISINOPRIL 20 MG TABLET (FP) PO SCH (09:43)
[2016-05-26] MEDS: HYDROCHLOROTHIAZIDE 25 MG TABLET (FP) PO SCH (09:43)
[2016-05-26] MEDS: PRENATAL VITAMINS W/ FOLIC ACID TABLET (FP) PO SCH (09:43)
[2016-05-26] MEDS: BACITRACIN 0.9 GM PACKET TP SCH ×2 (09:43→21:04)
[2016-05-26] MEDS: METOPROLOL TARTRATE 25 MG TABLET (FP) PO SCH (09:43)
[2016-05-26] MEDS: MINERAL OIL/PETROLAT/WATER TOPICAL CREAM 113 GM JAR TP SCH ×2 (09:44→21:04)
[2016-05-26 10:02] LABS: MCH 27.4 pg (25.7-33.7); MCHC 32.5 g/dl (32.0-35.9); MEAN CELL VOLUME 84.2 fl (80-96); MEAN PLT VOLUME 7.7 fl (7.5-11.1); PLATELET COUNT 316 K/MM3 (134-434); RDW 15.5 % (11.9-15.9)
[2016-05-26 10:23] LABS: ALBUMIN 3.5 g/dl (3.4-5.0); BILIRUBIN,TOTAL 0.3 mg/dL (0.2-1.0); CALCIUM 9.3 mg/dL (8.5-10.1); CREATININE 1.5 mg/dL (0.7-1.3); TOT PROT 7.7 g/dl (6.4-8.2)
[2016-05-26] MEDS: THIAMINE HCL 100 MG TABLET (FP) PO SCH (21:03)
[2016-05-26] MEDS: traZODone HCL 50 MG TABLET (FP) PO SCH (21:04)
[2016-05-27] MEDS: GABAPENTIN 100 MG CAPSULE (FP) PO SCH ×3 (05:54→21:09)
[2016-05-27] MEDS ORDERED: INSULIN (NOVOLOG) ASPART 100 UNITS/ML 10ML VIAL ONE ×2 (05:55→16:44)
[2016-05-27] MEDS: metFORMIN HCL 500 MG TABLET (FP) PO SCH ×2 (06:00→16:45)
[2016-05-27] MEDS: INSULIN SLIDING SCALE (NOVOLOG) 1 VIAL SQ SCH ×2 (06:00→16:44)
[2016-05-27] MEDS: ASPIRIN 81 MG CHEWABLE TABLETS PO SCH (10:10)
[2016-05-27] MEDS: BACITRACIN 0.9 GM PACKET TP SCH ×2 (10:10→21:09)
[2016-05-27] MEDS: CLOPIDOGREL BISULFATE 75 MG TABLET (FP) PO SCH (10:10)
[2016-05-27] MEDS: HYDROCHLOROTHIAZIDE 25 MG TABLET (FP) PO SCH (10:10)
[2016-05-27] MEDS: PRENATAL VITAMINS W/ FOLIC ACID TABLET (FP) PO SCH (10:10)
[2016-05-27] MEDS: LISINOPRIL 20 MG TABLET (FP) PO SCH (10:10)
[2016-05-27] MEDS: METOPROLOL TARTRATE 25 MG TABLET (FP) PO SCH (10:10)
[2016-05-27] MEDS: MINERAL OIL/PETROLAT/WATER TOPICAL CREAM 113 GM JAR TP SCH ×2 (10:11→21:10)
[2016-05-27] MEDS: P-EPHED 60MG/TRIPROLIDI 2.5MG TABLET PO PRN (14:06)
[2016-05-27] MEDS: traZODone HCL 50 MG TABLET (FP) PO SCH (21:09)
[2016-05-27] MEDS: THIAMINE HCL 100 MG TABLET (FP) PO SCH (21:09)
[2016-05-28] MEDS: diphenhydrAMINE HCL 50 MG CAPSULE PO PRN (02:07)
[2016-05-28] MEDS: GABAPENTIN 100 MG CAPSULE (FP) PO SCH ×3 (06:34→21:11)
[2016-05-28] MEDS: metFORMIN HCL 500 MG TABLET (FP) PO SCH ×2 (06:34→17:03)
[2016-05-28] MEDS ORDERED: INSULIN (NOVOLOG) ASPART 100 UNITS/ML 10ML VIAL ONE ×2 (06:37→16:41)
[2016-05-28] MEDS: INSULIN SLIDING SCALE (NOVOLOG) 1 VIAL SQ SCH ×2 (06:38→17:05)
[2016-05-28] MEDS: LISINOPRIL 20 MG TABLET (FP) PO SCH (10:01)
[2016-05-28] MEDS: PRENATAL VITAMINS W/ FOLIC ACID TABLET (FP) PO SCH (10:01)
[2016-05-28] MEDS: BACITRACIN 0.9 GM PACKET TP SCH ×2 (10:01→21:11)
[2016-05-28] MEDS: CLOPIDOGREL BISULFATE 75 MG TABLET (FP) PO SCH (10:01)
[2016-05-28] MEDS: ASPIRIN 81 MG CHEWABLE TABLETS PO SCH (10:01)
[2016-05-28] MEDS: HYDROCHLOROTHIAZIDE 25 MG TABLET (FP) PO SCH (10:01)
[2016-05-28] MEDS: METOPROLOL TARTRATE 25 MG TABLET (FP) PO SCH (10:01)
[2016-05-28] MEDS: MINERAL OIL/PETROLAT/WATER TOPICAL CREAM 113 GM JAR TP SCH ×2 (10:02→21:12)
[2016-05-28] MEDS: P-EPHED 60MG/TRIPROLIDI 2.5MG TABLET PO PRN (14:25)
[2016-05-28] MEDS: THIAMINE HCL 100 MG TABLET (FP) PO SCH (21:11)
[2016-05-28] MEDS: traZODone HCL 50 MG TABLET (FP) PO SCH (21:11)
[2016-05-29] MEDS: GABAPENTIN 100 MG CAPSULE (FP) PO SCH ×2 (06:06→21:13)
[2016-05-29] MEDS: INSULIN SLIDING SCALE (NOVOLOG) 1 VIAL SQ SCH ×2 (06:06→16:47)
[2016-05-29] MEDS: metFORMIN HCL 500 MG TABLET (FP) PO SCH (06:06)
[2016-05-29] MEDS ORDERED: INSULIN (NOVOLOG) ASPART 100 UNITS/ML 10ML VIAL ONE ×2 (06:38→16:48)
[2016-05-29] MEDS: LISINOPRIL 20 MG TABLET (FP) PO SCH (10:06)
[2016-05-29] MEDS: CLOPIDOGREL BISULFATE 75 MG TABLET (FP) PO SCH (10:06)
[2016-05-29] MEDS: PRENATAL VITAMINS W/ FOLIC ACID TABLET (FP) PO SCH (10:06)
[2016-05-29] MEDS: ASPIRIN 81 MG CHEWABLE TABLETS PO SCH (10:06)
[2016-05-29] MEDS: METOPROLOL TARTRATE 25 MG TABLET (FP) PO SCH (10:06)
[2016-05-29] MEDS: BACITRACIN 0.9 GM PACKET TP SCH ×2 (10:06→21:13)
[2016-05-29] MEDS: HYDROCHLOROTHIAZIDE 25 MG TABLET (FP) PO SCH (10:06)
[2016-05-29] MEDS: MINERAL OIL/PETROLAT/WATER TOPICAL CREAM 113 GM JAR TP SCH ×2 (10:07→21:14)
[2016-05-29] MEDS ORDERED: GABAPENTIN 100 MG CAPSULE (FP) PO ONE (15:37)
[2016-05-29] MEDS: glipiZIDE 5 MG TABLET (FP) PO SCH (16:49)
--- NOTE | 2016-05-29 17:30 | PN ---
BHS Progress Note Note: NURSE CALL FOR BGM 417 MG/DL SLIDING SCALE OF 12 UNITS SC AND GLUCOTROL 5 MG GIVEN SCHEDULED.
[2016-05-29] MEDS: traZODone HCL 50 MG TABLET (FP) PO SCH (21:13)
[2016-05-29] MEDS: THIAMINE HCL 100 MG TABLET (FP) PO SCH (21:13)
[2016-05-30] MEDS: glipiZIDE 5 MG TABLET (FP) PO SCH (06:04)
[2016-05-30] MEDS: GABAPENTIN 100 MG CAPSULE (FP) PO SCH ×3 (06:05→21:20)
[2016-05-30] MEDS: INSULIN SLIDING SCALE (NOVOLOG) 1 VIAL SQ SCH ×2 (06:05→18:07)
[2016-05-30] MEDS ORDERED: INSULIN (NOVOLOG) ASPART 100 UNITS/ML 10ML VIAL ONE ×3 (06:50→18:07)
[2016-05-30] MEDS: CLOPIDOGREL BISULFATE 75 MG TABLET (FP) PO SCH (10:18)
[2016-05-30] MEDS: ASPIRIN 81 MG CHEWABLE TABLETS PO SCH (10:18)
[2016-05-30] MEDS: HYDROCHLOROTHIAZIDE 25 MG TABLET (FP) PO SCH (10:18)
[2016-05-30] MEDS: METOPROLOL TARTRATE 25 MG TABLET (FP) PO SCH (10:18)
[2016-05-30] MEDS: LISINOPRIL 20 MG TABLET (FP) PO SCH (10:18)
[2016-05-30] MEDS: BACITRACIN 0.9 GM PACKET TP SCH ×2 (10:18→21:20)
[2016-05-30] MEDS: PRENATAL VITAMINS W/ FOLIC ACID TABLET (FP) PO SCH (10:18)
[2016-05-30] MEDS: P-EPHED 60MG/TRIPROLIDI 2.5MG TABLET PO PRN (10:20)
[2016-05-30] MEDS: MINERAL OIL/PETROLAT/WATER TOPICAL CREAM 113 GM JAR TP SCH ×2 (10:26→21:21)
[2016-05-30] MEDS ORDERED: INSULIN (NOVOLOG) ASPART 100 UNITS/ML 10ML VIAL SQ ONE (13:08)
[2016-05-30] MEDS: sitaGLIPtin PHOSPHATE 50 MG TABLET PO SCH (18:08)
--- NOTE | 2016-05-30 18:53 | PN ---
S Progress Note Note: received nurse call, patient returned from ER negative ct of head fall protocol #1 continue nrehab
[2016-05-30] MEDS: THIAMINE HCL 100 MG TABLET (FP) PO SCH (21:20)
[2016-05-30] MEDS: traZODone HCL 50 MG TABLET (FP) PO SCH (21:20)
[2016-05-31] MEDS: GABAPENTIN 100 MG CAPSULE (FP) PO SCH ×3 (06:09→21:40)
[2016-05-31] MEDS: INSULIN SLIDING SCALE (NOVOLOG) 1 VIAL SQ SCH ×3 (06:09→22:02)
[2016-05-31] MEDS: sitaGLIPtin PHOSPHATE 50 MG TABLET PO SCH ×2 (06:09→16:46)
[2016-05-31] MEDS ORDERED: INSULIN (NOVOLOG) ASPART 100 UNITS/ML 10ML VIAL ONE ×3 (06:43→22:02)
[2016-05-31] MEDS: BACITRACIN 0.9 GM PACKET TP SCH ×2 (10:00→21:40)
[2016-05-31] MEDS: LISINOPRIL 20 MG TABLET (FP) PO SCH (10:00)
[2016-05-31] MEDS: ASPIRIN 81 MG CHEWABLE TABLETS PO SCH (10:00)
[2016-05-31] MEDS: HYDROCHLOROTHIAZIDE 25 MG TABLET (FP) PO SCH (10:00)
[2016-05-31] MEDS: PRENATAL VITAMINS W/ FOLIC ACID TABLET (FP) PO SCH (10:00)
[2016-05-31] MEDS: CLOPIDOGREL BISULFATE 75 MG TABLET (FP) PO SCH (10:00)
[2016-05-31] MEDS: MINERAL OIL/PETROLAT/WATER TOPICAL CREAM 113 GM JAR TP SCH ×2 (10:00→21:40)
[2016-05-31] MEDS: METOPROLOL TARTRATE 25 MG TABLET (FP) PO SCH (10:00)
[2016-05-31] MEDS: THIAMINE HCL 100 MG TABLET (FP) PO SCH (21:40)
[2016-05-31] MEDS: traZODone HCL 50 MG TABLET (FP) PO SCH (21:40)
--- NOTE | 2016-05-31 21:53 | PN ---
BHS Progress Note Note: received nurse call finger stick 445 give levemir 10 units + insulin coverage prior to eat hs snack dietary consultation continue rehab
[2016-05-31] MEDS ORDERED: INSULIN DETEMIR 100 UNITS/ML MDV SQ SCH (22:00)
[2016-06-01] MEDS: GABAPENTIN 100 MG CAPSULE (FP) PO SCH ×3 (06:05→21:39)
[2016-06-01] MEDS: sitaGLIPtin PHOSPHATE 50 MG TABLET PO SCH ×2 (06:05→16:41)
[2016-06-01] MEDS: P-EPHED 60MG/TRIPROLIDI 2.5MG TABLET PO PRN (06:05)
[2016-06-01] MEDS: INSULIN SLIDING SCALE (NOVOLOG) 1 VIAL SQ SCH ×4 (06:06→21:39)
[2016-06-01] MEDS ORDERED: INSULIN (NOVOLOG) ASPART 100 UNITS/ML 10ML VIAL ONE ×4 (06:50→21:39)
[2016-06-01] MEDS: ASPIRIN 81 MG CHEWABLE TABLETS PO SCH (09:55)
[2016-06-01] MEDS: CLOPIDOGREL BISULFATE 75 MG TABLET (FP) PO SCH (09:55)
[2016-06-01] MEDS: METOPROLOL TARTRATE 25 MG TABLET (FP) PO SCH (09:55)
[2016-06-01] MEDS: HYDROCHLOROTHIAZIDE 25 MG TABLET (FP) PO SCH (09:55)
[2016-06-01] MEDS: PRENATAL VITAMINS W/ FOLIC ACID TABLET (FP) PO SCH (09:56)
[2016-06-01] MEDS: MINERAL OIL/PETROLAT/WATER TOPICAL CREAM 113 GM JAR TP SCH ×2 (09:56→21:40)
[2016-06-01] MEDS: BACITRACIN 0.9 GM PACKET TP SCH (09:56)
[2016-06-01] MEDS ORDERED: LISINOPRIL 20 MG TABLET (FP) PO ONE (10:00)
[2016-06-01] MEDS: traZODone HCL 50 MG TABLET (FP) PO SCH (21:40)
[2016-06-01] MEDS: THIAMINE HCL 100 MG TABLET (FP) PO SCH (21:40)
[2016-06-01] MEDS ORDERED: INSULIN DETEMIR 100 UNITS/ML MDV SQ SCH (22:00)
[2016-06-02] MEDS: GABAPENTIN 100 MG CAPSULE (FP) PO SCH ×3 (05:54→21:02)
[2016-06-02] MEDS ORDERED: INSULIN (NOVOLOG) ASPART 100 UNITS/ML 10ML VIAL ONE ×4 (05:56→20:54)
[2016-06-02] MEDS: INSULIN SLIDING SCALE (NOVOLOG) 1 VIAL SQ SCH ×4 (06:00→21:04)
[2016-06-02] MEDS: sitaGLIPtin PHOSPHATE 50 MG TABLET PO SCH ×2 (06:00→16:41)
[2016-06-02] MEDS: P-EPHED 60MG/TRIPROLIDI 2.5MG TABLET PO PRN (07:52)
[2016-06-02] MEDS: HYDROCHLOROTHIAZIDE 25 MG TABLET (FP) PO SCH (09:50)
[2016-06-02] MEDS: CLOPIDOGREL BISULFATE 75 MG TABLET (FP) PO SCH (09:51)
[2016-06-02] MEDS: ASPIRIN 81 MG CHEWABLE TABLETS PO SCH (09:51)
[2016-06-02] MEDS: METOPROLOL TARTRATE 25 MG TABLET (FP) PO SCH (09:51)
[2016-06-02] MEDS: PRENATAL VITAMINS W/ FOLIC ACID TABLET (FP) PO SCH (09:51)
[2016-06-02] MEDS: MINERAL OIL/PETROLAT/WATER TOPICAL CREAM 113 GM JAR TP SCH ×2 (09:52→21:02)
[2016-06-02] MEDS: THIAMINE HCL 100 MG TABLET (FP) PO SCH (21:02)
[2016-06-02] MEDS: traZODone HCL 50 MG TABLET (FP) PO SCH (21:02)
[2016-06-02] MEDS: INSULIN DETEMIR 100 UNITS/ML MDV SQ SCH (21:02)
[2016-06-03] MEDS ORDERED: PT OWN MED DRAWER 7, Y5N ONE (05:51)
[2016-06-03] MEDS: sitaGLIPtin PHOSPHATE 50 MG TABLET PO SCH ×2 (06:14→16:45)
[2016-06-03] MEDS: GABAPENTIN 100 MG CAPSULE (FP) PO SCH ×3 (06:14→21:02)
[2016-06-03] MEDS: INSULIN SLIDING SCALE (NOVOLOG) 1 VIAL SQ SCH ×4 (06:14→21:05)
[2016-06-03] MEDS ORDERED: INSULIN (NOVOLOG) ASPART 100 UNITS/ML 10ML VIAL ONE ×4 (06:42→21:05)
[2016-06-03] MEDS: HYDROCHLOROTHIAZIDE 25 MG TABLET (FP) PO SCH (09:45)
[2016-06-03] MEDS: PRENATAL VITAMINS W/ FOLIC ACID TABLET (FP) PO SCH (09:45)
[2016-06-03] MEDS: ASPIRIN 81 MG CHEWABLE TABLETS PO SCH (09:45)
[2016-06-03] MEDS: METOPROLOL TARTRATE 25 MG TABLET (FP) PO SCH (09:45)
[2016-06-03] MEDS: CLOPIDOGREL BISULFATE 75 MG TABLET (FP) PO SCH (09:45)
[2016-06-03] MEDS: MINERAL OIL/PETROLAT/WATER TOPICAL CREAM 113 GM JAR TP SCH ×2 (09:46→21:03)
[2016-06-03] MEDS: P-EPHED 60MG/TRIPROLIDI 2.5MG TABLET PO PRN (09:48)
[2016-06-03] MEDS: THIAMINE HCL 100 MG TABLET (FP) PO SCH (21:02)
[2016-06-03] MEDS: traZODone HCL 50 MG TABLET (FP) PO SCH (21:02)
[2016-06-03] MEDS: INSULIN DETEMIR 100 UNITS/ML MDV SQ SCH (21:03)
[2016-06-04] MEDS: INSULIN SLIDING SCALE (NOVOLOG) 1 VIAL SQ SCH ×4 (06:15→21:00)
[2016-06-04] MEDS: sitaGLIPtin PHOSPHATE 50 MG TABLET PO SCH ×2 (06:15→16:22)
[2016-06-04] MEDS: GABAPENTIN 100 MG CAPSULE (FP) PO SCH ×3 (06:15→21:00)
[2016-06-04] MEDS ORDERED: INSULIN (NOVOLOG) ASPART 100 UNITS/ML 10ML VIAL ONE ×4 (06:53→21:49)
[2016-06-04] MEDS: HYDROCHLOROTHIAZIDE 25 MG TABLET (FP) PO SCH (10:25)
[2016-06-04] MEDS: PRENATAL VITAMINS W/ FOLIC ACID TABLET (FP) PO SCH (10:25)
[2016-06-04] MEDS: ASPIRIN 81 MG CHEWABLE TABLETS PO SCH (10:25)
[2016-06-04] MEDS: CLOPIDOGREL BISULFATE 75 MG TABLET (FP) PO SCH (10:25)
[2016-06-04] MEDS: METOPROLOL TARTRATE 25 MG TABLET (FP) PO SCH (10:25)
[2016-06-04] MEDS: MINERAL OIL/PETROLAT/WATER TOPICAL CREAM 113 GM JAR TP SCH ×2 (10:26→21:01)
[2016-06-04] MEDS: traZODone HCL 50 MG TABLET (FP) PO SCH (21:00)
[2016-06-04] MEDS: THIAMINE HCL 100 MG TABLET (FP) PO SCH (21:00)
[2016-06-04] MEDS: INSULIN DETEMIR 100 UNITS/ML MDV SQ SCH (21:01)
[2016-06-05] MEDS: P-EPHED 60MG/TRIPROLIDI 2.5MG TABLET PO PRN (02:57)
[2016-06-05] MEDS: GABAPENTIN 100 MG CAPSULE (FP) PO SCH ×3 (05:44→21:00)
[2016-06-05] MEDS ORDERED: INSULIN (NOVOLOG) ASPART 100 UNITS/ML 10ML VIAL ONE ×4 (05:46→21:07)
[2016-06-05] MEDS: sitaGLIPtin PHOSPHATE 50 MG TABLET PO SCH ×2 (06:55→16:37)
[2016-06-05] MEDS: INSULIN SLIDING SCALE (NOVOLOG) 1 VIAL SQ SCH ×4 (06:55→21:07)
[2016-06-05] MEDS: METOPROLOL TARTRATE 25 MG TABLET (FP) PO SCH (09:59)
[2016-06-05] MEDS: CLOPIDOGREL BISULFATE 75 MG TABLET (FP) PO SCH (09:59)
[2016-06-05] MEDS: PRENATAL VITAMINS W/ FOLIC ACID TABLET (FP) PO SCH (09:59)
[2016-06-05] MEDS: HYDROCHLOROTHIAZIDE 25 MG TABLET (FP) PO SCH (09:59)
[2016-06-05] MEDS: ASPIRIN 81 MG CHEWABLE TABLETS PO SCH (09:59)
[2016-06-05] MEDS: MINERAL OIL/PETROLAT/WATER TOPICAL CREAM 113 GM JAR TP SCH ×2 (10:00→21:03)
--- NOTE | 2016-06-05 20:21 | PN ---
Psychiatric Progress Note Vital Signs: Vital Signs Period Temp Pulse Resp BP Sys/Olmos Pulse Ox Last 24 Hr 97.5 F 92-94 18-18 139-147/89-98 Date of Session: 06/05/16 Chief Complaint:: Psychiatrist Discharge Note HPI: Patient addressing Alcohol, Opoid Dependence comorbid with Nicotine Dependence, Substance-Induced Mood Disorder and Substance-Induced Sleep Disorder. ROS: DM, HTN, Hyperlipidemia, CAD with stent were medically managed Current Medications: Active Medications Generic Name Dose Route Start Last Admin Trade Name Freq PRN Reason Stop Dose Admin Acetaminophen 650 mg 05/09/16 12:41 Tylenol - PO Q4H PRN FEVER OR PAIN Al Hydroxide/Mg Hydroxide 30 ml 05/09/16 12:41 Mylanta Oral Suspension - PO Q6H PRN DYSPEPSIA Aspirin 81 mg 05/11/16 10:00 06/05/16 09:59 Asa - PO 81 mg DAILY VITA Administration Clopidogrel Bisulfate 75 mg 05/11/16 10:00 06/05/16 09:59 Plavix - PO 75 mg DAILY VITA Administration Diphenhydramine HCl 50 mg 05/09/16 12:41 05/28/16 02:07 Benadryl - PO 50 mg HSMR1 PRN Administration FOR ITCHING Eucalyptus/Menthol/Phenol/Sorbitol 1 each 05/09/16 12:41 Cepastat Lozenge - MM Q4H PRN SORE THROAT Gabapentin 200 mg 05/29/16 22:00 06/05/16 14:16 Neurontin - PO 200 mg TID VITA Administration Guaifenesin 10 ml 05/09/16 12:41 05/30/16 10:20 Robitussin Dm - PO 10 ml Q6H PRN Administration COUGH Hydrochlorothiazide 25 mg 05/10/16 10:00 06/05/16 09:59 Hctz - PO 25 mg DAILY VITA Administration Ibuprofen 400 mg 05/09/16 12:41 05/24/16 14:26 Motrin - PO 400 mg Q6H PRN Administration PAIN Insulin Aspart 1 vial 05/31/16 22:00 06/05/16 16:38 Novolog Vial Sliding Scale - SQ 14 unit ACHS VITA Administration Protocol Insulin Detemir 20 units 06/02/16 22:00 06/04/16 21:01 Levemir Vial SQ 20 units HS VITA Administration Loperamide HCl 4 mg 05/09/16 12:41 05/10/16 08:55 Imodium - PO 4 mg Q6H PRN Administration DIARRHEA Magnesium Hydroxide 30 ml 05/09/16 12:41 Milk Of Magnesia - PO DAILY PRN CONSTIPATION Metoprolol Tartrate 25 mg 05/10/16 10:00 06/05/16 09:59 Lopressor - PO 25 mg DAILY VITA Administration Multi-Ingredient Lotion 1 applic 05/17/16 22:00 06/05/16 10:00 Eucerin (Small Jar) - TP 1 applic BID VITA Administration Nicotine Polacrilex 4 mg 05/09/16 12:41 Nicorette Gum - BUC Q2H PRN NICOTINE REPLACEMENT RX Ondansetron HCl 4 mg 05/10/16 13:18 Zofran Odt - SL Q6H PRN NAUSEA AND/OR VOMITING Multivit/Folic Acid/Iron 1 tab 05/10/16 10:00 06/05/16 09:59 Vitamins (Sjr) - PO 1 tab DAILY VITA Administration Pseudoephedrine/Triprolidine 1 combo 05/09/16 12:41 06/05/16 02:57 Actifed - PO 1 combo TID PRN Administration NASAL CONGESTION Sitagliptin Phosphate 50 mg 05/30/16 16:30 06/05/16 16:37 Januvia - PO 50 mg BID@07,1630 VITA Administration Thiamine HCl 100 mg 05/09/16 22:00 06/04/16 21:00 Vitamin B1 - PO 100 mg HS VITA Administration Trazodone HCl 50 mg 05/09/16 22:00 06/04/16 21:00 Desyrel - PO 50 mg HS VITA Administration Current Side Effect: No Lab tests ordered: Yes Lab tests reviewed: Yes Provider note:: Patient will complete this program on 06/06/16. He has met his treatment goals and will continue to address his issues in outpatient treatment at [facility] located at [address] [place] [address]. He verbalized understanding of the negative consequences of his addiction and from his participation in this program, he has realized the importance of establising a sober network in order to maintain sobriety. He responded well to Trazadone 50 mg po HS. Script for 30 days supply of that medication will be electronically transmitted to [facility] at [address] [place] [id number]. He is stable for discharge on 06/06/16 Total face to face time:: 35 Mental Status Exam - Mental Status Exam Alert and Oriented to: Time, Place, Person Cognitive Function: Fair Patient Appearance: Well Groomed Mood: Hopeful, Euthymic Affect: Appropriate Patient Behavior: Cooperative Speech Pattern: Clear Voice Loudness: Normal Thought Process: Intact Hallucinations: Denies Suicidal Ideation: Denies Homicidal Ideation: Denies Insight/Judgement: Fair Sleep: Fair Appetite: Good Muscle strength/Tone: Normal Gait/Station: Normal Psychiatric Treatment Plan - Problem List (1) Alcohol dependence with uncomplicated withdrawal Current Visit: No (2) Opioid dependence with withdrawal Current Visit: No (3) Nicotine dependence Current Visit: No (4) Substance induced mood disorder Current Visit: No (5) Substance-induced sleep disorder Current Visit: No (6) DM Diabetes mellitus type 2 Current Visit: No (7) Essential hypertension Current Visit: No (8) Hypercholesterolemia Current Visit: No (9) coronary artery disease with stent Current Visit: No (10) renal insufficiency Current Visit: No Initial treatment plan: Patient will be discharged tomorrow and referred to [facility] for outpatient treatment
[2016-06-05] MEDS: THIAMINE HCL 100 MG TABLET (FP) PO SCH (21:00)
[2016-06-05] MEDS: traZODone HCL 50 MG TABLET (FP) PO SCH (21:01)
[2016-06-05] MEDS: INSULIN DETEMIR 100 UNITS/ML MDV SQ SCH (21:04)
[2016-06-06] MEDS: P-EPHED 60MG/TRIPROLIDI 2.5MG TABLET PO PRN (02:34)
[2016-06-06] MEDS: GABAPENTIN 100 MG CAPSULE (FP) PO SCH (05:42)
[2016-06-06] MEDS ORDERED: INSULIN (NOVOLOG) ASPART 100 UNITS/ML 10ML VIAL ONE (05:42)
[2016-06-06] MEDS: sitaGLIPtin PHOSPHATE 50 MG TABLET PO SCH (06:17)
[2016-06-06] MEDS: INSULIN SLIDING SCALE (NOVOLOG) 1 VIAL SQ SCH (06:17)
[2016-06-06 06:49] VITALS: BP 139/99; PULSE 91; TEMP 97.6
[2016-06-06] MEDS: CLOPIDOGREL BISULFATE 75 MG TABLET (FP) PO SCH (10:07)
[2016-06-06] MEDS: METOPROLOL TARTRATE 25 MG TABLET (FP) PO SCH (10:07)
[2016-06-06] MEDS: HYDROCHLOROTHIAZIDE 25 MG TABLET (FP) PO SCH (10:07)
[2016-06-06] MEDS: ASPIRIN 81 MG CHEWABLE TABLETS PO SCH (10:07)
[2016-06-06] MEDS: PRENATAL VITAMINS W/ FOLIC ACID TABLET (FP) PO SCH (10:07)
[2016-06-06] MEDS: MINERAL OIL/PETROLAT/WATER TOPICAL CREAM 113 GM JAR TP SCH (10:08)
== END 2016-06-06 10:37 | disposition home or self-care (01) | DRG 772 ==
LOC: YASAS 12:27 → Y5N 12:28
PROVIDERS: ADMIT Psychiatry & Neurology Psychiatry; ATTEND Psychiatry & Neurology Psychiatry
PROC: HZ42ZZZ Group Counseling for Substance Abuse Treatment, Cognitive-Behavioral (ICD-10-PCS; principal; 2016-05-09)
DX: F11.20 Opioid dependence, uncomplicated (principal); F10.20 Alcohol dependence, uncomplicated; F17.210 Nicotine dependence, cigarettes, uncomplicated; F19.24 Other psychoactive substance dependence with psychoactive substance-induced mood disorder; F19.282 Other psychoactive substance dependence with psychoactive substance-induced sleep disorder; E11.9 Type 2 diabetes mellitus without complications; E78.00 Pure hypercholesterolemia, unspecified; I10 Essential (primary) hypertension; I25.10 Atherosclerotic heart disease of native coronary artery without angina pectoris; Z95.5 Presence of coronary angioplasty implant and graft; N28.9 Disorder of kidney and ureter, unspecified; Z79.4 Long term (current) use of insulin; Z86.73 Personal history of transient ischemic attack (TIA), and cerebral infarction without residual deficits
CPT/HCPCS: 36415; 80053; 85027

== ENCOUNTER 2016-05-30 14:29 | Emergency (ER) | payer OTHER ==
[2016-05-30 14:47] VITALS: TEMP 98.3; BMI 30.1
--- NOTE | 2016-05-30 15:03 | PDOC ---
History of Present Illness - General Chief Complaint: Injury Stated Complaint: FALL Time Seen by Provider: 05/30/16 14:55 History Source: Patient Exam Limitations: No Limitations - History of Present Illness Initial Comments: 05/30/16 20:25 The patient is a 51 year old male, BIBA with a significant past medical history of heroin and EtOH abuse, HTN, HLD, DM, CVA (2011; chronic unsteady gait), CAD s /p stent on plavix who presents to the emergency department from [facility] s/p mechanical fall. He reports falling out of bed earlier today. He reports having a mild headache after falling. He denies any LOC., vision changes, numbness/ tingling/weakness, nausea/vomiting. He denies any recent fevers, chills, or dizziness. He denies any diarrhea or constipation. Allergies: NKA Past surgical history: Angioplasty s/p stents Social History: Former smoker. See HPI. Past History - Past Medical History Allergies/Adverse Reactions: Allergies Allergy/AdvReac Type Severity Reaction Status Date / Time No Known Allergies Allergy Verified 05/30/16 14:47 Home Medications: Ambulatory Orders Hydrochlorothiazide [Hctz -] 25 mg PO DAILY #30 tablet 03/30/13 Lisinopril [Prinivil] 20 mg PO DAILY #30 tablet 03/30/13 Metformin HCl [Glucophage -] 1,000 mg PO BIDAC #60 tablet 05/09/16 Metoprolol Tartrate [Lopressor -] 25 mg PO DAILY #30 tab 05/09/16 Anemia: No Asthma: No Cancer: No Cardiac Disorders: Yes (ANGIOPLASTY WITH STENT) CVA: Yes (HX RIGHT HEMIPLEGIA--NO RESIDUAL EFFECTS TODAY.) COPD: No CHF: No Dementia: No Diabetes: Yes (ON MED) GI Disorders: No Disorders: No HTN: Yes (ON MED) Hypercholesterolemia: Yes Kidney Stones: No Liver Disease: No Suicide Attempt (Hx): No (DENIES) Seizures: No Thyroid Disease: No - Surgical History Abdominal Surgery: No Appendectomy: No Cardiac Surgery: Yes (s/p angioplasty with stent) Cholecystectomy: No Lung Surgery: No Neurologic Surgery: No Orthopedic Surgery: No - Reproductive History Testicular Surgery: No - Immunization History Immunization Up to Date: Yes - Psycho/Social/Smoking Cessation Hx Anxiety: No Suicidal Ideation: No Smoking History: Former smoker Have you smoked in the past 12 months: Yes Number of Cigarettes Smoked Daily: 20 Cigars Per Day: 0 Information on smoking cessation initiated: No 'Breaking Loose' booklet given: 05/04/16 Hx Alcohol Use: No Drug/Substance Use Hx: Yes (heroin) Substance Use Type: Alcohol (1 Pint of liquor), Heroin (15 bags daily) Hx Substance Use Treatment: Yes (signed ama on 2011 from ) Trauma Specific PMHX - Complaint Specific PMHX Arthritis: No Review of Systems - Review of Systems Able to Perform ROS?: Yes Comments:: 05/30/16 20:26 CONSTITUTIONAL: No reported: Fever, Chills, Diaphoresis, Generalized Weakness, Malaise, Loss of Appetite HEENT: No reported: Rhinorrhea, Nasal Congestion, Throat Pain, Throat Swelling, Difficulty Swallowing, Mouth Swelling, Ear Pain, Eye Pain, Visual Changes CARDIOVASCULAR: No reported: Chest Pain, Syncope, Palpitations, Irregular Heart Rate, Lightheadedness, Peripheral Edema RESPIRATORY: No reported: Cough, Shortness of Breath, SOB with Exertion, Orthopnea, Wheezing , Stridor, Hemoptysis GASTROINTESTINAL: No reported: Abdominal pain, Abdominal Distension, Nausea, Vomiting, Diarrhea, Constipation, Melena, Hematochezia GENITOURINARY: No reported: Dysuria, Frequency, Urgency, Hesitancy, Flank Pain, Genital Pain MUSCULOSKELETAL: No reported: Myalgia, Arthralgia, Joint Swelling, Back pain, Neck Pain SKIN: No reported: Rash, Itching, Pallor HEMEATOLOGIC/IMMUNOLOGIC: No reported: Easy Bleeding, Easy Bruising, Lymphadenopathy, Frequent infections ENDOCRINE: No reported: Unexplained Weight Gain, Unexplained Weight Loss, Heat Intolerance , Cold Intolerance NEUROLOGIC: +Headache. No reported: Focal Weakness, Paresthesias, Vertigo, Lightheadedness, Unsteady Gait, Seizure, Mental Status Changes, Incontinence PSYCHIATRIC: No reported: Anxiety, Depression *Physical Exam - Vital Signs Last Vital Signs Temp Pulse Resp BP Pulse Ox 98.3 F 86 18 115/81 97 05/30/16 14:43 05/30/16 14:43 05/30/16 14:43 05/30/16 14:43 05/30/16 14:43 - Physical Exam Comments: 05/30/16 20:27 GENERAL: The patient is awake, alert, and fully oriented, Nontoxic - in no acute distress. HEAD: Normocephalic, atraumatic. EYES: extraocular movements intact, sclera anicteric, conjunctiva clear. ENT: Normal voice, Moist mucous membranes. NECK: Normal range of motion, supple LUNGS: Breath sounds equal, clear to auscultation bilaterally. No wheezes, no rhonchi, no rales. HEART: Regular rate and rhythm, without murmur, rub or gallop. ABDOMEN: Soft, nontender, normoactive bowel sounds. No guarding, no rebound.No CVA tenderness NEUROLOGICAL: No facial asymmetry, Normal speech. PSYCH: Normal mood, normal affect. SKIN: Warm, Dry, normal turgor. Back: No midline tenderness to the cervical, thoracic or lumbar spine Musculoskelatal: FROM of b/l shoulders, elbows, wrist. FROM of hips, knees, ankles - No signs of ecchymosis, erythema, or crepitus noted on palpation extremities, chest wall, clavicals, ribs, back. Heart Score/ECG Review - ECG Impressions Comment:: 05/30/16 15:28 Twelve-lead EKG was performed and reviewed by me. There is normal sinus rhythm with a normal rate. Rate of 87 The axis is normal. right ventricular conduction delay LAFB no ST changes suggestive of ischemia ED Treatment Course - LABORATORY CBC & Chemistry Diagram: 05/30/16 16:00 05/30/16 16:00 - RADIOLOGY Radiology Studies Ordered: Category Date Time Status HEAD CT WITHOUT CONTRAST [CT] Stat CT Scan 05/30/16 14:55 Ordered Medical Decision Making - Medical Decision Making 05/30/16 15:27 51y m hx of poorly controled dm, [facility], he rolled off the bed no LOC, minimal headache currently, no vision changes, numbness/tingling/ weakness exam unreamarkble with no focal tenderness, ecchymosis, stepoffs. will ck ct head will ck labs as pt was noted hyperglycemic to 400s will give fluids will reassess A portion of this note was documented by scribe services under my direction. I have reviewed the details of the note, within reason, and agree with the documentation with the following case summary and management plan written by me 05/30/16 17:27 labs reviewd cmp hemolyzed but the pts vbg is not acidodic, no ketones in the urine - dka highly unlikely pts bgm improved to [address] head negative will d/c the pt back to [facility] for rehab return precautions were discussed I discussed the physical exam findings, ancillary test results and final diagnoses with the patient. I answered all of the patient's questions. The patient was satisfied with the care received and felt comfortable with the discharge plan and treatment plan. The patient will call their primary care physician within 24 hours to arrange follow-up and will return to the Emergency Department with any new, persistent or worsening symptoms. *DC/Admit/Observation/Transfer Diagnosis at time of Disposition: DM Diabetes mellitus type 2 Head injury Qualifiers: Encounter type: initial encounter Qualified Code(s): S09.90XA - Unspecified injury of head, initial encounter - Discharge Dispostion Disposition: I.P. ALCOHOL/SUBS ABUSE REHAB Condition at time of disposition: Improved Admit: No - Patient Instructions Printed Discharge Instructions: DI for Closed Head Injury, DI for Hyperglycemia -- Adult Additional Instructions: Return to the emergency department immediately with ANY new, persistent or worsening symptoms. You MUST call and follow up with your doctor tomorrow for further evaluation of your symptoms. Results were discussed with you. Please make sure your doctor reviews the results of your emergency evaluation. If you had any xrays during your visit, it was read preliminarily by myself, a Radiologist will review it and if there are any additional findings we will call you. Print Language: KOREAN
[2016-05-30] MEDS ORDERED: SODIUM CHLORIDE 1,000 ML IV ONE (15:27)
[2016-05-30] MEDS ORDERED: ACETAMINOPHEN 325 MG TABLET (FP) PO ONE (15:27)
[2016-05-30] MEDS ORDERED: ACETAMINOPHEN 325 MG TABLET (FP) ONE (15:34)
[2016-05-30 15:37] LABS: URINE APPEARANCE CLEAR; URINE BILIRUBIN NEGATIVE (NEGATIVE); URINE BLOOD NEGATIVE (NEGATIVE); URINE COLOR STRAW; URINE GLUCOSE (UA) 3+ (NEGATIVE); URINE KETONE NEGATIVE (NEGATIVE); URINE LEUK ESTERASE NEGATIVE (NEGATIVE); URINE NITRITE NEGATIVE (NEGATIVE); URINE PROTEIN NEGATIVE (NEGATIVE); URINE UROBILINOGEN NEGATIVE E.U./dl (0.2-1.0)
[2016-05-30 16:11] LABS: BASOPHIL 0.8 % (0-2.0); EOSINOPHIL 2.9 % (0-4.5); MCH 27.4 pg (25.7-33.7); MCHC 32.9 g/dl (32.0-35.9); MEAN CELL VOLUME 83.3 fl (80-96); MEAN PLT VOLUME 7.3 fl (7.5-11.1); NEUTROPHILS 64.8 % (42.8-82.8); PLATELET COUNT 314 K/MM3 (134-434); RDW 15.9 % (11.9-15.9); WHITE BLOOD COUNT 10.5 K/mm3 (4.0-10.0)
[2016-05-30 16:13] LABS: VENOUS PH 7.43 (7.32-7.42)
[2016-05-30 17:43] VITALS: BP 126/78; PULSE 64
--- NOTE | 2016-06-02 10:12 | EKG ---
Test Reason : Blood Pressure : / mmHG Vent. Rate : 087 BPM Atrial Rate : 087 BPM P-R Int : 216 ms QRS Dur : 102 ms QT Int : 364 ms P-R-T Axes : 063 -51 090 degrees QTc Int : 438 ms SINUS RHYTHM WITH 1ST DEGREE A-V BLOCK RSR' OR QR PATTERN IN V1 SUGGESTS RIGHT VENTRICULAR CONDUCTION DELAY LEFT ANTERIOR FASCICULAR BLOCK ANTEROLATERAL INFARCT (CITED ON OR BEFORE 04-MAY-2016) ABNORMAL ECG Confirmed by GONZALEZ SANDOVAL MD ([id number]) on 06/02/2016 10:12:20 AM Referred By: Confirmed By:GONZALEZ SANDOVAL MD
== END 2016-05-30 17:51 | disposition other institution (70) ==
LOC: JER 14:29
PROC: 3E0337Z Introduction of Electrolytic and Water Balance Substance into Peripheral Vein, Percutaneous Approach (ICD-10-PCS; principal; 2016-05-30)
DX: S09.8XXA Other specified injuries of head, initial encounter (principal); W06.XXXA Fall from bed, initial encounter; Y93.89 Activity, other specified; Y92.230 Patient room in hospital as the place of occurrence of the external cause; I10 Essential (primary) hypertension; E11.65 Type 2 diabetes mellitus with hyperglycemia; Z79.84 Long term (current) use of oral hypoglycemic drugs; E78.00 Pure hypercholesterolemia, unspecified; Z95.5 Presence of coronary angioplasty implant and graft; Z86.73 Personal history of transient ischemic attack (TIA), and cerebral infarction without residual deficits; F11.20 Opioid dependence, uncomplicated; F10.20 Alcohol dependence, uncomplicated
CPT/HCPCS: 36415; 70450-TC; 81003; 82803; 85025; 93005; 93010; 96360; 99284-25

== ENCOUNTER 2016-08-22 11:36 | Inpatient (IN) | payer OTHER ==
[2016-08-22 12:59] VITALS: BMI 30.8
--- NOTE | 2016-08-22 14:25 | HP ---
CIWA Score - CIWA Score Nausea/Vomitin Muscle Tremors: 3 Anxiety: 4-Mod. Anxious/Guarded Agitation: 3 Paroxysmal Sweats: 1-Minimal Palms Moist Orientation: 0-Oriented Tacttile Disturbances: 3-Moderate Itch/Numb/Burn Auditory Disturbances: 0-None Visual Disturbances: 0-None Headache: 2-Mild CIWA-Ar Total Score: 19 Admission ROS BHS - HPI Chief Complaint: DETOX TX FOR ALCOHOL DEPENDENCE Allergies/Adverse Reactions: Allergies Allergy/AdvReac Type Severity Reaction Status Date / Time No Known Allergies Allergy Verified 08/22/16 13:20 History of Present Illness: 51 Y/O H/MALE WITH A HX OF ALCOHOL DEPENDENCE ON METHADONE MAINTENANCE SEEKING DETOX TX Exam Limitations: No Limitations - Ebola screening Have you traveled outside of the country in the last 21 days: No Have you had contact with anyone from an Ebola affected area: No Have you been sick,other than usual withdrawal symptoms: No - Review of Systems Constitutional: Chills, Night Sweats, Changes in sleep EENT: reports: Blurred Vision, Tearing, Dental Problems (NO TEETH-NOT WITH PATIENT.) Respiratory: reports: No Symptoms reported Cardiac: reports: Lightheadedness GI: reports: Constipated, Diarrhea, Nausea, Vomiting : reports: Frequency Musculoskeletal: reports: Back Pain, Joint Pain, Muscle Pain Integumentary: reports: No Symptoms Reported Neuro: reports: Headache, Numbness, Tingling, Tremors, Dizziness, Other (HX FALLS) Endocrine: reports: No Symptoms Reported Hematology: reports: No Symptoms Reported Psychiatric: reports: Orientated x3, Anxious Other Systems: Reviewed and Negative Patient History - Patient Medical History Hx Anemia: No Hx Asthma: No Hx Chronic Obstructive Pulmonary Disease (COPD): No Hx Cancer: No Hx Cardiac Disorders: Yes (stents x2 in 2008) Hx Congestive Heart Failure: No Hx Hypertension: Yes (ON MED) Hx Hypercholesterolemia: Yes Hx Pacemaker: No HX Cerebrovascular Accident: Yes (HX RIGHT HEMIPLEGIA--NO RESIDUAL EFFECTS TODAY.) Hx Seizures: No Hx Dementia: No Hx Diabetes: Yes (IDDM) Hx Gastrointestinal Disorders: No Hx Liver Disease: No Hx Genitourinary Disorders: No Hx Sexually Transmitted Disorders: No Hx Renal Disease (ESRD): No Hx Thyroid Disease: No Hx Human Immunodeficiency Virus (HIV): No (08/2011-NEGATIVE) Hx Hepatitis C: No Hx Depression: No Hx Suicide Attempt: No (DENIES) Hx Bipolar Disorder: No Hx Schizophrenia: No - Patient Surgical History Past Surgical History: No Hx Neurologic Surgery: No Hx Cataract Extraction: No Hx Cardiac Surgery: Yes (s/p angioplasty with stent) Hx Lung Surgery: No Hx Breast Surgery: No Hx Breast Biopsy: No Hx Abdominal Surgery: No Hx Appendectomy: No Hx Cholecystectomy: No Hx Genitourinary Surgery: No Hx Section: No Hx Orthopedic Surgery: No Hx Hysterectomy: No Other Surgical History: 2009-cardiac cath with stent at [facility] after routine p.exam Anesthesia Reaction: No - PPD History Previous Implant?: Yes Documented Results: Positive w/o proof Results: CXR(-) 05/05/16 PPD to be Administered?: No - Reproductive History Patient is a Female of Child Bearing Age (11 -55 yrs old): No (MALE) - Smoking Cessation Smoking history: Current every day smoker Have you smoked in the past 12 months: Yes Aproximately how many cigarettes per day: 20 Cigars Per Day: 0 Hx Chewing Tobacco Use: No Initiated information on smoking cessation: Yes 'Breaking Loose' booklet given: 08/22/16 - Substance & Tx. History Hx Alcohol Use: Yes (BEER/VODKA) Hx Substance Use: Yes (HEROIN--ON MMTP) Substance Use Type: Alcohol, Heroin Hx Substance Use Treatment: Yes ([facility]-DETOX/REHAB) - Substances Abused Heroin Route: Inhalation Frequency: Daily Amount used: 4-5 bags Age of first use: 16 Date of Last Use: 08/21/16 Alcohol-rum/vodka/beer Route: Oral Frequency: Daily Amount used: 2 pts./2-6 pks. Age of first use: 16 Date of Last Use: 08/21/16 Family Disease History - Family Disease History Family Disease History: Other: Grandparent (KIDNEY FAILURE-) Admission Physical Exam BHS - Vital Signs Vital Signs: Vital Signs - 24 hr 08/22/16 12:57 Temperature 98.3 F Pulse Rate 73 Respiratory 19 Rate Blood Pressure 165/100 - Physical General Appearance: Yes: Moderate Distress, Irritable, Anxious HEENTM: Yes: EOMI, Normocephalic, YASMEEN, Pharynx Normal, Nasal Congestion, Rhinorrhea Respiratory: Yes: Chest Non-Tender, Lungs Clear, Normal Breath Sounds, No Respiratory Distress Neck: Yes: Supple, Trachea in good position Breast: Yes: Breast Exam Deferred Cardiology: Yes: Regular Rhythm, Regular Rate, S1, S2 Abdominal: Yes: Normal Bowel Sounds, Non Tender, Soft Genitourinary: Yes: Other (N/C) Back: Yes: Within Normal Limits Musculoskeletal: Yes: full range of Motion, Gait Steady Extremities: Yes: Normal Range of Motion, Non-Tender Neurological: Yes: paleontology teacher II-XII NML intact, Fully Oriented, Alert Integumentary: Yes: Dry, Warm, Other (PATCHY SKIN DISCOLORATIONS ON LOWER EXTREMITIES.) Lymphatic: Yes: Within Normal Limits - Diagnostic (1) renal insufficiency Current Visit: Yes Status: Suspected (2) Alcohol dependence with uncomplicated withdrawal Current Visit: Yes Status: Acute (3) Essential hypertension Current Visit: Yes Status: Chronic (4) Nicotine dependence Current Visit: Yes Status: Chronic (5) coronary artery disease with stent Current Visit: Yes Status: Chronic (6) Methadone maintenance therapy patient Current Visit: Yes Status: Chronic Comment: METHADONE 30 MG PO DAILY,LAST DOSE TODAY 08/22/16 (7) Type 2 diabetes mellitus Current Visit: Yes Status: Chronic Cleared for Admission [facility] - Detox or Rehab [facility] Level of Care: Medically Managed Detox Regimen/Protocol: Librium [facility] Breath Alcohol Content Breath Alcohol Content: 0 Urine Drug Screen - Results Drug Screen Negative: No Urine Drug Screen Results: OPI-Opiates, MTD-Methadone
[2016-08-22] MEDS ORDERED: IBUPROFEN 400 MG TABLET (FP) PO PRN (14:32)
[2016-08-22] MEDS ORDERED: ACETAMINOPHEN 325 MG TABLET (FP) PO PRN (14:32)
[2016-08-22] MEDS ORDERED: MAG HYDROX/AL HYDROX/SIMETH 30 ML UNIT-DOSE CUP PO PRN (14:32)
[2016-08-22] MEDS ORDERED: diphenhydrAMINE HCL 50 MG CAPSULE PO PRN (14:32)
[2016-08-22] MEDS ORDERED: MAGNESIUM CITRATE 300 ML BOTTLE PO PRN (14:32)
[2016-08-22] MEDS ORDERED: hydrOXYzine PAMOATE 25 MG CAPSULE (FP) PO PRN (14:32)
[2016-08-22] MEDS ORDERED: MENTHOL/PHENOL 1 EACH UD MM PRN (14:32)
[2016-08-22] MEDS ORDERED: guaiFENesin/D-METHORPHAN HB 10 ML UNIT-DOSE CUPS PO PRN (14:32)
[2016-08-22] MEDS ORDERED: chlordiazePOXIDE HCL 25 MG CAPSULE PO PRN (14:32)
[2016-08-22] MEDS ORDERED: LOPERAMIDE HCL 2 MG CAPSULE PO PRN (14:32)
[2016-08-22] MEDS ORDERED: MAGNESIUM HYDROX 2400MG/30ML ORAL SUSPENSION 30 ML CUP PO PRN (14:32)
[2016-08-22] MEDS ORDERED: P-EPHED 60MG/TRIPROLIDI 2.5MG TABLET PO PRN (14:32)
[2016-08-22] MEDS ORDERED: chlordiazePOXIDE HCL 25 MG CAPSULE PO ONE (15:23)
[2016-08-22] MEDS: sitaGLIPtin PHOSPHATE 50 MG TABLET PO SCH (17:00)
[2016-08-22] MEDS: METOPROLOL TARTRATE 25 MG TABLET (FP) PO SCH (17:30)
[2016-08-22] MEDS: GABAPENTIN 100 MG CAPSULE (FP) PO SCH ×2 (17:30→22:07)
[2016-08-22] MEDS: LISINOPRIL 20 MG TABLET (FP) PO SCH (17:30)
[2016-08-22] MEDS: HYDROCHLOROTHIAZIDE 25 MG TABLET (FP) PO SCH (17:30)
[2016-08-22] MEDS: NICOTINE 14 MG/24 HOURS TOPICAL PATCH TD SCH (17:31)
[2016-08-22] MEDS: CLOPIDOGREL BISULFATE 75 MG TABLET (FP) PO SCH (17:31)
[2016-08-22] MEDS: ASPIRIN 81 MG CHEWABLE TABLETS PO SCH (17:31)
[2016-08-22] MEDS: chlordiazePOXIDE HCL 25 MG CAPSULE PO SCH ×2 (17:31→22:07)
[2016-08-22] MEDS ORDERED: INSULIN (NOVOLOG) ASPART 100 UNITS/ML 10ML VIAL ONE ×2 (17:35→22:02)
[2016-08-22] MEDS: INSULIN SLIDING SCALE (NOVOLOG) 1 VIAL SQ SCH (17:44)
[2016-08-22 18:58] LABS: URINE APPEARANCE CLEAR; URINE BILIRUBIN NEGATIVE (NEGATIVE); URINE BLOOD NEGATIVE (NEGATIVE); URINE COLOR YELLOW; URINE GLUCOSE (UA) 3+ (NEGATIVE); URINE KETONE NEGATIVE (NEGATIVE); URINE LEUK ESTERASE NEGATIVE (NEGATIVE); URINE NITRITE NEGATIVE (NEGATIVE); URINE UROBILINOGEN NEGATIVE E.U./dl (0.2-1.0)
[2016-08-22 19:05] LABS: URINE PROTEIN 2+ (NEGATIVE)
[2016-08-22 19:16] LABS: URINE MUCUS RARE; URINE RBC 1 /hpf (0-3); URINE WBC 2 /hpf (3-5)
[2016-08-22] MEDS: THIAMINE HCL 100 MG TABLET (FP) PO SCH (22:07)
[2016-08-22] MEDS: INSULIN DETEMIR 100 UNITS/ML MDV SQ SCH (22:08)
[2016-08-23] MEDS: GABAPENTIN 100 MG CAPSULE (FP) PO SCH ×3 (05:55→22:04)
[2016-08-23] MEDS: chlordiazePOXIDE HCL 25 MG CAPSULE PO SCH ×4 (05:55→22:04)
[2016-08-23] MEDS: sitaGLIPtin PHOSPHATE 50 MG TABLET PO SCH ×2 (06:40→17:22)
[2016-08-23] MEDS: INSULIN SLIDING SCALE (NOVOLOG) 1 VIAL SQ SCH ×2 (06:40→16:36)
[2016-08-23] MEDS: ASPIRIN 81 MG CHEWABLE TABLETS PO SCH (10:04)
[2016-08-23] MEDS: PRENATAL VITAMINS W/ FOLIC ACID TABLET (FP) PO SCH (10:04)
[2016-08-23] MEDS: LISINOPRIL 20 MG TABLET (FP) PO SCH (10:04)
[2016-08-23] MEDS: METOPROLOL TARTRATE 25 MG TABLET (FP) PO SCH (10:04)
[2016-08-23] MEDS: CLOPIDOGREL BISULFATE 75 MG TABLET (FP) PO SCH (10:05)
[2016-08-23] MEDS: HYDROCHLOROTHIAZIDE 25 MG TABLET (FP) PO SCH (10:05)
[2016-08-23] MEDS: NICOTINE 14 MG/24 HOURS TOPICAL PATCH TD SCH (10:05)
[2016-08-23] MEDS: NICOTINE POLACRILEX 2 MG GUM BUC PRN (10:06)
[2016-08-23] MEDS ORDERED: METHADONE HCL 10 MG TABLET PO ONE (10:12)
[2016-08-23 10:17] LABS: MCH 27.7 pg (25.7-33.7); MCHC 32.9 g/dl (32.0-35.9); MEAN CELL VOLUME 84.4 fl (80-96); MEAN PLT VOLUME 8.2 fl (7.5-11.1); PLATELET COUNT 328 K/MM3 (134-434); RDW 14.1 % (11.9-15.9); WHITE BLOOD COUNT 12.9 K/mm3 (4.0-10.0)
[2016-08-23 10:45] LABS: ALBUMIN 3.6 g/dl (3.4-5.0); BILIRUBIN,TOTAL 0.4 mg/dL (0.2-1.0); CALCIUM 9.1 mg/dL (8.5-10.1); COCKROFT - GAULT 87.07; CREATININE 1.4 mg/dL (0.7-1.3); TOT PROT 7.9 g/dl (6.4-8.2)
--- NOTE | 2016-08-23 10:54 | PN ---
[facility] CIWA - CIWA Score Nausea/Vomitin-No Nausea/No Vomiting Muscle Tremors: 4-Moderate,w/Arms Extend Anxiety: 4-Mod. Anxious/Guarded Agitation: 4-Moderately Restless Paroxysmal Sweats: 1-Minimal Palms Moist Orientation: 0-Oriented Tacttile Disturbances: 3-Moderate Itch/Numb/Burn Auditory Disturbances: 0-None Visual Disturbances: 0-None Headache: 0-None Present CIWA-Ar Total Score: 16 S Progress Note (SOAP) Subjective: ANXIETY,TREMORS,INSOMNIA--STATES TAKES AMBIEN--DENIED ON ADMISSION AND DENIES ANY OTHER PSYCH ISSUES TODAY. Objective: 08/23/16 10:52 Vital Signs Temperature 97.8 F 08/23/16 09:44 Pulse Rate 85 08/23/16 09:44 Respiratory Rate 18 08/23/16 09:44 Blood Pressure 120/87 08/23/16 09:44 O2 Sat by Pulse Oximetry (%) Laboratory Last Values WBC 12.9 K/mm3 (4.0-10.0) H 08/23/16 06:00 RBC 4.74 M/mm3 (4.00-5.60) 08/23/16 06:00 Hgb 13.1 GM/dL (11.7-16.9) 08/23/16 06:00 Hct 40.0 % (35.4-49) 08/23/16 06:00 MCV 84.4 fl (80-96) 08/23/16 06:00 MCHC 32.9 g/dl (32.0-35.9) 08/23/16 06:00 RDW 14.1 % (11.9-15.9) D 08/23/16 06:00 Plt Count 328 K/MM3 (134-434) 08/23/16 06:00 MPV 8.2 fl (7.5-11.1) D 08/23/16 06:00 POC Glucometer 155 UNITS (()) 08/23/16 05:56 Urine Color Yellow 08/22/16 15:00 Urine Appearance Clear 08/22/16 15:00 Urine pH 5.0 (5.0-8.0) D 08/22/16 15:00 Ur Specific [place] 1.020 (1.005-1.025) 08/22/16 15:00 Urine Protein 2+ (NEGATIVE) H 08/22/16 15:00 Urine Glucose (UA) 3+ (NEGATIVE) H 08/22/16 15:00 Urine Ketones Negative (NEGATIVE) 08/22/16 15:00 Urine Blood Negative (NEGATIVE) 08/22/16 15:00 Urine Nitrite Negative (NEGATIVE) 08/22/16 15:00 Urine Bilirubin Negative (NEGATIVE) 08/22/16 15:00 Urine Urobilinogen Negative E.U./dl (0.2-1.0) 08/22/16 15:00 Ur Leukocyte Esterase Negative (NEGATIVE) 08/22/16 15:00 Urine RBC 1 /hpf (0-3) 08/22/16 15:00 Urine WBC 2 /hpf (3-5) 08/22/16 15:00 Ur Epithelial Cells Rare /hpf (FEW) 08/22/16 15:00 Urine Mucus Rare 08/22/16 15:00 Assessment: 08/23/16 10:53 WITHDRAWAL SX Plan: CONTINUE DETOX F/U WITH PSYCH FOR INSOMNIA
--- NOTE | 2016-08-23 13:21 | EKG ---
Test Reason : Blood Pressure : / mmHG Vent. Rate : 074 BPM Atrial Rate : 074 BPM P-R Int : 230 ms QRS Dur : 108 ms QT Int : 436 ms P-R-T Axes : 048 -48 076 degrees QTc Int : 483 ms SINUS RHYTHM WITH 1ST DEGREE A-V BLOCK INCOMPLETE RIGHT BUNDLE BRANCH BLOCK LEFT ANTERIOR FASCICULAR BLOCK ANTEROLATERAL INFARCT (CITED ON OR BEFORE 04-MAY-2016) ABNORMAL ECG WHEN COMPARED WITH ECG OF 30-MAY-2016 14:51, QUESTIONABLE CHANGE IN INITIAL FORCES OF ANTERIOR LEADS Confirmed by PARISA JAIME MD ([id number]) on 08/23/2016 1:21:35 PM Referred By: Confirmed By:PARISA JAIME MD
[2016-08-23] MEDS: INSULIN DETEMIR 100 UNITS/ML MDV SQ SCH (22:04)
[2016-08-23] MEDS: THIAMINE HCL 100 MG TABLET (FP) PO SCH (22:05)
[2016-08-24] MEDS: chlordiazePOXIDE HCL 25 MG CAPSULE PO SCH ×2 (05:23→10:09)
[2016-08-24] MEDS: METHADONE HCL 10 MG TABLET PO SCH (05:24)
[2016-08-24] MEDS: GABAPENTIN 100 MG CAPSULE (FP) PO SCH ×3 (05:24→22:13)
[2016-08-24] MEDS: sitaGLIPtin PHOSPHATE 50 MG TABLET PO SCH ×2 (06:34→17:08)
[2016-08-24] MEDS: INSULIN SLIDING SCALE (NOVOLOG) 1 VIAL SQ SCH ×2 (06:43→17:08)
[2016-08-24] MEDS ORDERED: INSULIN (NOVOLOG) ASPART 100 UNITS/ML 10ML VIAL ONE ×2 (06:46→17:06)
--- NOTE | 2016-08-24 10:00 | CONSULT ---
[facility] Psychiatric Consult - Data Date of interview: 08/24/16 Admission source: [facility] Identifying data: This is 51 years old male with no psychiatric hospitalization history intoxicated with:\. Alcohol, Opioids, Nicotine Substance Abuse History: - Smoking Cessation. Smoking history: Current every day smoker. Have you smoked in the past 12 months: Yes. Aproximately how many cigarettes per day: 20. Cigars Per Day: 0. Hx Chewing Tobacco Use: No. Initiated information on smoking cessation: Yes. 'Breaking Loose' booklet given : 08/22/16. - Substance & Tx. History. Hx Alcohol Use: Yes (BEER/VODKA). Hx Substance Use: Yes (HEROIN--ON MMTP). Substance Use Type: Alcohol, Heroin. Hx Substance Use Treatment: Yes ([facility]-DETOX/REHAB). - Substances Abused. Heroin. Route: Inhalation. Frequency: Daily. Amount used: 4-5 bags. Age of first use: 16. Date of Last Use: 08/21/16. Alcohol-rum/vodka/beer. Route: Oral. Frequency: Daily. Amount used: 2 pts./2-6 pks. Age of first use: 16. Date of Last Use: 08/21/16 Medical History: MMTP, RENAL INSUFFICIENCY, DM-2, HTN, Obesity, history of head injury, Hypersholesterolemia Psychiatric History: Patient reports insomnia, reports taking prior to admisison Trazodone 50mg po qhs, asking for Ambien 10mg po as well Physical/Sexual Abuse/Trauma History: Denies Additional Comment: Trazodone 50mg po qhs. Ambien 10mg po prn Mental Status Exam - Mental Status Exam Alert and Oriented to: Person Cognitive Function: Fair Patient Appearance: Unkempt, Disheveled Mood: Nervous, Anxious Affect: Constricted Patient Behavior: Guarded, Agitated Speech Pattern: Appropriate Voice Loudness: Normal, Mildly Loud Thought Process: Circumstantial Thought Disorder: Being Controlled Hallucinations: Denies Suicidal Ideation: Denies Homicidal Ideation: Denies Insight/Judgement: Fair Sleep: Difficulty falling asleep Appetite: Weight gain Muscle strength/Tone: Mild Hypotonicity Gait/Station: Shuffling Additional Comments: Trazodone 50mg po qhs. Ambien 10mg po prn Psychiatric Findings - Problem List ([place] 1, 2,3) (1) Alcohol dependence with uncomplicated withdrawal Current Visit: Yes Status: Acute (2) Methadone maintenance therapy patient Current Visit: Yes Status: Chronic Comment: METHADONE 30 MG PO DAILY,LAST DOSE TODAY 08/22/16 (3) Nicotine dependence Current Visit: Yes Status: Chronic (4) Opioid dependence with withdrawal Current Visit: No Status: Acute (5) Substance induced mood disorder Current Visit: No Status: Acute (6) Substance-induced sleep disorder Current Visit: No Status: Acute - Initial Treatment Plan Initial Treatment Plan: Trazodone 50mg po qhs. Ambien 10mg po prn
[2016-08-24] MEDS: ASPIRIN 81 MG CHEWABLE TABLETS PO SCH (10:08)
[2016-08-24] MEDS: CLOPIDOGREL BISULFATE 75 MG TABLET (FP) PO SCH (10:08)
[2016-08-24] MEDS: PRENATAL VITAMINS W/ FOLIC ACID TABLET (FP) PO SCH (10:08)
[2016-08-24] MEDS: NICOTINE POLACRILEX 2 MG GUM BUC PRN (10:09)
[2016-08-24] MEDS: NICOTINE 14 MG/24 HOURS TOPICAL PATCH TD SCH (10:09)
[2016-08-24] MEDS: LISINOPRIL 20 MG TABLET (FP) PO SCH (10:09)
[2016-08-24] MEDS: HYDROCHLOROTHIAZIDE 25 MG TABLET (FP) PO SCH (10:09)
[2016-08-24] MEDS: METOPROLOL TARTRATE 25 MG TABLET (FP) PO SCH (10:09)
--- NOTE | 2016-08-24 11:20 | PN ---
[facility] CIWA - CIWA Score Nausea/Vomitin-No Nausea/No Vomiting Muscle Tremors: 4-Moderate,w/Arms Extend Anxiety: 4-Mod. Anxious/Guarded Agitation: 4-Moderately Restless Paroxysmal Sweats: 1-Minimal Palms Moist Orientation: 0-Oriented Tacttile Disturbances: 3-Moderate Itch/Numb/Burn Auditory Disturbances: 0-None Visual Disturbances: 0-None Headache: 0-None Present CIWA-Ar Total Score: 16 S Progress Note (SOAP) Subjective: ANXIETY,SWEATS,SLIGHT TREMORS, INTERMITTENT SLEEP-- HX INSOMNIA Objective: 08/24/16 11:18 Vital Signs Temperature 96.7 F L 08/24/16 09:26 Pulse Rate 83 08/24/16 09:26 Respiratory Rate 20 08/24/16 09:26 Blood Pressure 104/74 08/24/16 09:26 O2 Sat by Pulse Oximetry (%) Laboratory Last Values WBC 12.9 K/mm3 (4.0-10.0) H 08/23/16 06:00 RBC 4.74 M/mm3 (4.00-5.60) 08/23/16 06:00 Hgb 13.1 GM/dL (11.7-16.9) 08/23/16 06:00 Hct 40.0 % (35.4-49) 08/23/16 06:00 MCV 84.4 fl (80-96) 08/23/16 06:00 MCHC 32.9 g/dl (32.0-35.9) 08/23/16 06:00 RDW 14.1 % (11.9-15.9) D 08/23/16 06:00 Plt Count 328 K/MM3 (134-434) 08/23/16 06:00 MPV 8.2 fl (7.5-11.1) D 08/23/16 06:00 Sodium 135 mmol/L (136-145) L 08/23/16 06:00 Potassium 4.1 mmol/L (3.5-5.1) 08/23/16 06:00 Chloride 98 mmol/L (98-107) 08/23/16 06:00 Carbon Dioxide 26 mmol/L (21-32) 08/23/16 06:00 Anion Gap 11 (8-16) 08/23/16 06:00 BUN 25 mg/dL (7-18) H 08/23/16 06:00 Creatinine 1.4 mg/dL (0.7-1.3) H 08/23/16 06:00 Creat Clearance w eGFR 53.64 (>60) 08/23/16 06:00 POC Glucometer 236 UNITS (()) 08/24/16 05:25 Random Glucose 247 mg/dL (74-106) H D 08/23/16 06:00 Calcium 9.1 mg/dL (8.5-10.1) 08/23/16 06:00 Total Bilirubin 0.4 mg/dL (0.2-1.0) D 08/23/16 06:00 AST 15 U/L (15-37) D 08/23/16 06:00 ALT 21 U/L (12-78) 08/23/16 06:00 Alkaline Phosphatase 100 U/L (45-117) D 08/23/16 06:00 Total Protein 7.9 g/dl (6.4-8.2) 08/23/16 06:00 Albumin 3.6 g/dl (3.4-5.0) 08/23/16 06:00 Urine Color Yellow 08/22/16 15:00 Urine Appearance Clear 08/22/16 15:00 Urine pH 5.0 (5.0-8.0) D 08/22/16 15:00 Ur Specific [place] 1.020 (1.005-1.025) 08/22/16 15:00 Urine Protein 2+ (NEGATIVE) H 08/22/16 15:00 Urine Glucose (UA) 3+ (NEGATIVE) H 08/22/16 15:00 Urine Ketones Negative (NEGATIVE) 08/22/16 15:00 Urine Blood Negative (NEGATIVE) 08/22/16 15:00 Urine Nitrite Negative (NEGATIVE) 08/22/16 15:00 Urine Bilirubin Negative (NEGATIVE) 08/22/16 15:00 Urine Urobilinogen Negative E.U./dl (0.2-1.0) 08/22/16 15:00 Ur Leukocyte Esterase Negative (NEGATIVE) 08/22/16 15:00 Urine RBC 1 /hpf (0-3) 08/22/16 15:00 Urine WBC 2 /hpf (3-5) 08/22/16 15:00 Ur Epithelial Cells Rare /hpf (FEW) 08/22/16 15:00 Urine Mucus Rare 08/22/16 15:00 RPR Titer Nonreactive (NONREACTIVE) 08/23/16 06:00 Assessment: 08/24/16 11:18 WITHDRAWAL SX Plan: CONTINUE DETOX PSYCH CONSULT FOR INSOMNIA
[2016-08-24] MEDS ORDERED: chlordiazePOXIDE 5 MG CAPSULE PO SCH (17:00)
[2016-08-24] MEDS: chlordiazePOXIDE HCL 10 MG CAPSULE PO SCH ×2 (17:56→22:13)
[2016-08-24] MEDS ORDERED: ZOLPIDEM TARTRATE 10 MG TABLET (PARK CARE ONLY) PO PRN (22:00)
[2016-08-24] MEDS ORDERED: traZODone HCL 50 MG TABLET (FP) PO SCH (22:00)
[2016-08-24] MEDS: THIAMINE HCL 100 MG TABLET (FP) PO SCH (22:13)
[2016-08-24] MEDS: INSULIN DETEMIR 100 UNITS/ML MDV SQ SCH (22:16)
[2016-08-25] MEDS: METHADONE HCL 10 MG TABLET PO SCH (05:44)
[2016-08-25] MEDS: chlordiazePOXIDE HCL 10 MG CAPSULE PO SCH ×2 (05:44→10:25)
[2016-08-25] MEDS: INSULIN SLIDING SCALE (NOVOLOG) 1 VIAL SQ SCH (06:32)
[2016-08-25] MEDS: GABAPENTIN 100 MG CAPSULE (FP) PO SCH (06:33)
[2016-08-25] MEDS: sitaGLIPtin PHOSPHATE 50 MG TABLET PO SCH (06:33)
--- NOTE | 2016-08-25 09:19 | PN ---
[facility] Progress Note (SOAP) Subjective: DETOX COMPLETED. PT IS REFERRED TO [facility] TODAY. TO BE PICKED UP BY [facility]. Objective: 08/25/16 09:18 Vital Signs Temperature 95.9 F L 08/25/16 06:46 Pulse Rate 81 08/25/16 06:46 Respiratory Rate 18 08/25/16 06:46 Blood Pressure 113/80 08/25/16 06:46 O2 Sat by Pulse Oximetry (%) Assessment: 08/25/16 09:18 NO ACUTE DISTRESS Plan: D/C PT TODAY TO [facility]
--- NOTE | 2016-08-25 09:29 | DS ---
[facility] Detox Discharge Summary Admission Date: 08/22/16 Discharge Date: 08/25/16 - History Present History: Alcohol Dependence, MMTP Additional Comments: DETOX COMPLETED Pertinent Past History: DM HTN HX HEAD INJURY CAD WITH STENT HYPERCHOLESTEROLEMIA - Physical Exam Results Vital Signs: Vital Signs Temperature 95.9 F L 08/25/16 06:46 Pulse Rate 81 08/25/16 06:46 Respiratory Rate 18 08/25/16 06:46 Blood Pressure 113/80 08/25/16 06:46 O2 Sat by Pulse Oximetry (%) Pertinent Admission Physical Exam Findings: WITHDRAWAL SX Laboratory Last Values WBC 12.9 K/mm3 (4.0-10.0) H 08/23/16 06:00 RBC 4.74 M/mm3 (4.00-5.60) 08/23/16 06:00 Hgb 13.1 GM/dL (11.7-16.9) 08/23/16 06:00 Hct 40.0 % (35.4-49) 08/23/16 06:00 MCV 84.4 fl (80-96) 08/23/16 06:00 MCHC 32.9 g/dl (32.0-35.9) 08/23/16 06:00 RDW 14.1 % (11.9-15.9) D 08/23/16 06:00 Plt Count 328 K/MM3 (134-434) 08/23/16 06:00 MPV 8.2 fl (7.5-11.1) D 08/23/16 06:00 Sodium 135 mmol/L (136-145) L 08/23/16 06:00 Potassium 4.1 mmol/L (3.5-5.1) 08/23/16 06:00 Chloride 98 mmol/L (98-107) 08/23/16 06:00 Carbon Dioxide 26 mmol/L (21-32) 08/23/16 06:00 Anion Gap 11 (8-16) 08/23/16 06:00 BUN 25 mg/dL (7-18) H 08/23/16 06:00 Creatinine 1.4 mg/dL (0.7-1.3) H 08/23/16 06:00 Creat Clearance w eGFR 53.64 (>60) 08/23/16 06:00 POC Glucometer 309 UNITS (()) 08/25/16 05:43 Random Glucose 247 mg/dL (74-106) H D 08/23/16 06:00 Calcium 9.1 mg/dL (8.5-10.1) 08/23/16 06:00 Total Bilirubin 0.4 mg/dL (0.2-1.0) D 08/23/16 06:00 AST 15 U/L (15-37) D 08/23/16 06:00 ALT 21 U/L (12-78) 08/23/16 06:00 Alkaline Phosphatase 100 U/L (45-117) D 08/23/16 06:00 Total Protein 7.9 g/dl (6.4-8.2) 08/23/16 06:00 Albumin 3.6 g/dl (3.4-5.0) 08/23/16 06:00 Urine Color Yellow 08/22/16 15:00 Urine Appearance Clear 08/22/16 15:00 Urine pH 5.0 (5.0-8.0) D 08/22/16 15:00 Ur Specific [place] 1.020 (1.005-1.025) 08/22/16 15:00 Urine Protein 2+ (NEGATIVE) H 08/22/16 15:00 Urine Glucose (UA) 3+ (NEGATIVE) H 08/22/16 15:00 Urine Ketones Negative (NEGATIVE) 08/22/16 15:00 Urine Blood Negative (NEGATIVE) 08/22/16 15:00 Urine Nitrite Negative (NEGATIVE) 08/22/16 15:00 Urine Bilirubin Negative (NEGATIVE) 08/22/16 15:00 Urine Urobilinogen Negative E.U./dl (0.2-1.0) 08/22/16 15:00 Ur Leukocyte Esterase Negative (NEGATIVE) 08/22/16 15:00 Urine RBC 1 /hpf (0-3) 08/22/16 15:00 Urine WBC 2 /hpf (3-5) 08/22/16 15:00 Ur Epithelial Cells Rare /hpf (FEW) 08/22/16 15:00 Urine Mucus Rare 08/22/16 15:00 RPR Titer Nonreactive (NONREACTIVE) 08/23/16 06:00 - Treatment Hospital Course: Detox Protocol Followed, Detoxed Safely, Responded well, Discharged Condition Good, Rehab Referral Accepted Patient has Accepted a Rehab Referral to: [facility] - Medication Discharge Medications: Ambulatory Orders Metoprolol Tartrate [Lopressor -] 25 mg PO DAILY #30 tab 05/09/16 Trazodone HCl [Desyrel -] 50 mg PO HS #30 tablet 06/05/16 Aspirin [ASA -] 81 mg PO DAILY #30 tab.chew 06/06/16 Clopidogrel Bisulfate [Plavix -] 75 mg PO DAILY #30 tablet 06/06/16 Gabapentin [Neurontin -] 200 mg PO TID #90 capsule 06/06/16 Hydrochlorothiazide [Hctz -] 25 mg PO DAILY #30 tablet 06/06/16 Lisinopril [Prinivil] 20 mg PO DAILY #30 tablet 06/06/16 Sitagliptin Phosphate [Januvia -] 50 mg PO BID@1630 #60 tablet 06/06/16 Insulin (Levemir) [Levemir Flexpen -] 0 units SQ TID 08/22/16 Insulin Glargine,Hum.rec.anlog [Lantus (nf)] 20 units SQ HS 08/22/16 Trazodone HCl [Desyrel -] 50 mg PO HS #30 tablet 08/24/16 - Diagnosis (1) renal insufficiency Current Visit: Yes Status: Suspected (2) Alcohol dependence with uncomplicated withdrawal Current Visit: Yes Status: Acute (3) Essential hypertension Current Visit: Yes Status: Chronic (4) Nicotine dependence Current Visit: Yes Status: Chronic (5) coronary artery disease with stent Current Visit: Yes Status: Chronic (6) Methadone maintenance therapy patient Current Visit: Yes Status: Chronic (7) Type 2 diabetes mellitus Current Visit: Yes Status: Chronic - AMA Did Patient Leave Against Medical Advice: No
[2016-08-25 10:20] VITALS: BP 109/79; PULSE 93; TEMP 97.3
[2016-08-25] MEDS: PRENATAL VITAMINS W/ FOLIC ACID TABLET (FP) PO SCH (10:25)
[2016-08-25] MEDS: ASPIRIN 81 MG CHEWABLE TABLETS PO SCH (10:25)
[2016-08-25] MEDS: HYDROCHLOROTHIAZIDE 25 MG TABLET (FP) PO SCH (10:25)
[2016-08-25] MEDS: CLOPIDOGREL BISULFATE 75 MG TABLET (FP) PO SCH (10:25)
[2016-08-25] MEDS: LISINOPRIL 20 MG TABLET (FP) PO SCH (10:25)
[2016-08-25] MEDS: METOPROLOL TARTRATE 25 MG TABLET (FP) PO SCH (10:25)
[2016-08-25] MEDS: NICOTINE 14 MG/24 HOURS TOPICAL PATCH TD SCH (10:25)
[2016-08-25] MEDS ORDERED: chlordiazePOXIDE HCL 10 MG CAPSULE PO SCH (17:00)
== END 2016-08-25 12:15 | disposition home or self-care (01) | DRG 773 ==
LOC: YASAS 11:36 → Y3N 15:14
PROVIDERS: ADMIT Internal Medicine Addiction Medicine; ATTEND Internal Medicine Addiction Medicine
PROC: HZ2ZZZZ Detoxification Services for Substance Abuse Treatment (ICD-10-PCS; principal; 2016-08-25)
DX: F10.230 Alcohol dependence with withdrawal, uncomplicated (principal); F11.20 Opioid dependence, uncomplicated; F17.210 Nicotine dependence, cigarettes, uncomplicated; F19.24 Other psychoactive substance dependence with psychoactive substance-induced mood disorder; I25.10 Atherosclerotic heart disease of native coronary artery without angina pectoris; Z98.61 Coronary angioplasty status; I10 Essential (primary) hypertension; E11.9 Type 2 diabetes mellitus without complications; Z79.4 Long term (current) use of insulin; E78.00 Pure hypercholesterolemia, unspecified; I69.851 Hemiplegia and hemiparesis following other cerebrovascular disease affecting right dominant side
CPT/HCPCS: 36415; 80053; 81003; 81015; 85027; 86593; 93005; 93010